=== PATIENT | male | born 1970 | race Caucasian/White ===

== ENCOUNTER 2017-05-29 14:39 | Inpatient (IN) | payer MEDICAID ==
[~2017-05-29] VITALS: Ht 154.9 cm; Wt 56.7 kg
[~2017-05-29 14:39] MED LIST: ETOMIDATE 2MG/ML 10ML VIAL IV ONE; SUCCINYLCHOLINE CHLORIDE 200MG/10ML VIAL IV ONE
[2017-05-29] MEDS ORDERED: ACETAMINOPHEN 650MG/20.3ML UDC ONE (15:09)
[2017-05-29] MEDS ORDERED: SODIUM CHLORIDE 0.9% 1,000 ML IV ONE (16:06)
[2017-05-29] MEDS ORDERED: LEVOFLOXACIN 750MG PREMIX 150 ML IV ONE (16:15)
[2017-05-29] MEDS ORDERED: IBUPROFEN 400MG TABLET PO ONE (16:15)
[2017-05-29] MEDS ORDERED: FOLIC ACID 1 MG, THIAMINE HCL 100 MG, MVI, ADULT NO.1 10 ML in DEXTROSE 5% WATER 1,000 ML IV ONE ×4 (16:15)
[2017-05-29 16:34] LABS: CARBON DIOXIDE 20 mEq/L (21-32); CHLORIDE 103 mEq/L (98-107)
[2017-05-29 16:35] LABS: HEMATOCRIT. 23.7 % (42.0-52.0); HEMOGLOBIN. 7.3 g/dL (14.0-18.0); MEAN CORPUSCULAR HEMOGLOBIN 24.3 pg (28.0-32.0); MEAN CORPUSCULAR VOLUME 78.8 fL (80.0-94.0); RED BLOOD CELL COUNT 3.01 mill/uL (4.7-6.1); RED CELL DISTRIBUTION WIDTH 19.1 % (11.6-14.6)
[2017-05-29 16:38] LABS: ETHANOL BLOOD 283 mg/dL; INR 1.5; PARTIAL THROMBOPLASTIN TIME 27.8 sec (23.4-31.0); PROTHROMBIN TIME 15.4 sec (9.4-11.6)
[2017-05-29 17:07] LABS: MEAN PLATELET VOLUME 5.9 fl (7.4-10.4)
[2017-05-29 17:09] LABS: PLATELET 16 x1000/uL (130-400)
[2017-05-29 17:11] LABS: PLATELET ESTIMATE MARKEDLY DECREASED
[2017-05-29] MEDS ORDERED: SODIUM CHLORIDE 0.9% 1000ML BAG (SEPSIS BOLUS) IV ONE (17:15)
[2017-05-29] MEDS ORDERED: PIPERACILLIN/TAZ 3.375G PREMIX 50 ML IV ONE (17:30)
[2017-05-29] MEDS ORDERED: VANCOMYCIN 1 G PREMIX 200 ML IV ONE (17:30)
[2017-05-29] MEDS ORDERED: HYDROCODONE/ACETAMINOPHEN 5/325MG TABLET PO PRN (19:00)
[2017-05-29] MEDS ORDERED: ONDANSETRON HCL 4MG/2ML VIAL IV PRN (19:00)
[2017-05-29] MEDS ORDERED: ENOXAPARIN 40MG/0.4ML SYR SUBCUT SCH (19:00)
[2017-05-29] MEDS ORDERED: SODIUM CHLORIDE 0.9% 1,000 ML IV SCH (21:15)
[2017-05-29 21:30] VITALS: BP 115/64
[2017-05-29 22:00] VITALS: BP 135/67
[2017-05-29] MEDS ORDERED: DEXT 5%/0.45% NACL KCL 40MEQ/L 1,000 ML IV SCH (22:00)
[2017-05-29] MEDS ORDERED: POTASSIUM CHLORIDE INJ 40 MEQ in DEXT 5% WATER 500 ML IV NR (23:30)
[2017-05-30] VITALS (66 sets, daily range): BP systolic 76–164; BP diastolic 42–97
[2017-05-30] MEDS: MORPHINE SULFATE 2 MG/ML CPJ (NOT FOR IM USE) IV PRN (01:00)
[2017-05-30] MEDS: LORAZEPAM 2MG/ML CPJ IV PRN ×2 (02:23→08:06)
[2017-05-30] MEDS: ACETAMINOPHEN 325MG TABLET PO PRN (04:24)
[2017-05-30 08:03] LABS: HEMATOCRIT. 29.2 % (42.0-52.0); HEMOGLOBIN. 8.9 g/dL (14.0-18.0); MEAN CORPUSCULAR HEMOGLOBIN 25.4 pg (28.0-32.0); MEAN CORPUSCULAR VOLUME 83.2 fL (80.0-94.0); MEAN PLATELET VOLUME 9.9 fl (7.4-10.4); RED BLOOD CELL COUNT 3.51 mill/uL (4.7-6.1); RED CELL DISTRIBUTION WIDTH 18.1 % (11.6-14.6)
[2017-05-30 08:12] LABS: CARBON DIOXIDE 19 mEq/L (21-32); CHLORIDE 101 mEq/L (98-107); PHOSPHORUS 5.3 mg/dL (2.5-4.9)
[2017-05-30 08:22] LABS: PLATELET 25 x1000/uL (130-400)
[2017-05-30] MEDS: THIAMINE HCL 100MG TABLET PO SCH (09:00)
[2017-05-30 09:28] LABS: PLATELET ESTIMATE MARKEDLY DECREASED
[2017-05-30] MEDS ORDERED: LORAZEPAM 2MG/ML CPJ IV PRN (10:15)
[2017-05-30] MEDS ORDERED: IPRATROPIUM/ALBUTEROL 0.5-3(2.5)MG/3ML NEB HHN PRN (12:30)
[2017-05-30] MEDS ORDERED: PHENYLEPHRINE 20 MG in DEXT 5% WATER 248 ML IV PRN (12:30)
[2017-05-30] MEDS ORDERED: MAGNESIUM 2 G PREMIX 50 ML IV SCH ×2 (12:30→15:30)
[2017-05-30] MEDS: PROPOFOL 10MG/ML 100ML 100 ML IV PRN ×2 (13:28→17:53)
[2017-05-30 13:51] LABS: BG BASE EXCESS -5.3 mmol/L (-2.0-2.0); BG CARBOXYHEMOGLOBIN 0.3 % (0.5-1.5); BG HCO3 ACT 19.2 mmol/L (22.0-26.0); BG METHEMOGLOBIN 0.4 % (0.0-1.5); BG OXYHEMOGLOBIN 98.3 % (94.0-97.0); BG PCO2 33.3 mmHg (35.0-45.0); BG PH 7.378 (7.350-7.450); BG PO2 157.9 mmHg (75.0-100.0); BG SAMPLE SITE RIGHT RADIAL; BG TIDAL VOLUME(mL) 500 mL; BG TOTAL HEMOGLOBIN 9.6 g/dL (12.0-18.0); BG VENT MODE VENT - A/C; BG VENT RATE 14 set
[2017-05-30] MEDS ORDERED: LEVOFLOXACIN 750MG PREMIX 150 ML IV SCH (14:00)
[2017-05-30] MEDS: FOLIC ACID 1 MG, THIAMINE HCL 100 MG, MVI, ADULT NO.1 10 ML in DEXT 5%/0.9% NACL 1,000 ML IV SCH ×4 (14:12)
[2017-05-30] MEDS: LEVETIRACETAM 500 MG in SODIUM CHLORIDE 0.9% 100 ML IV SCH (14:14)
[2017-05-30] MEDS ORDERED: VANCOMYCIN 1250MG in DEXTROSE 5% WATER 250ML IV SCH (15:00)
[2017-05-30] MEDS: IPRATROPIUM/ALBUTEROL 0.5-3(2.5)MG/3ML NEB HHN SCH ×2 (15:13→20:49)
[2017-05-30] MEDS: NOREPINEPHRINE 8 MG in DEXT 5% WATER 242 ML IV PRN (15:32)
[2017-05-30] MEDS: PANTOPRAZOLE SODIUM 40 MG/VIAL IV SCH (15:32)
[2017-05-30] MEDS ORDERED: CEFTRIAXONE 2 G PREMIX 50 ML IV SCH (16:00)
[2017-05-30 16:09] LABS: CLARITY URINE CLOUDY (CLEAR); COLOR URINE DARK YELLOW (YELLOW); GLUCOSE URINE NEGATIVE (NEGATIVE); KETONES URINE NEGATIVE (NEGATIVE); LEUKOCYTE ESTERASE URINE NEGATIVE (NEGATIVE); NITRITE URINE NEGATIVE (NEGATIVE); OCCULT BLOOD URINE 2+ (NEGATIVE); PROTEIN URINE 2+ (NEGATIVE); UROBILINOGEN URINE 0.2 E.U./dL (0.2-1.0)
[2017-05-30 16:19] LABS: *AMPHETAMINES SCREEN URINE NEGATIVE (NEGATIVE); *BARBITURATES SCREEN URINE NEGATIVE (NEGATIVE); *BENZODIAZEPINES SCREEN URINE NEGATIVE (NEGATIVE); *COCAINE SCREEN URINE NEGATIVE (NEGATIVE); CANNABINOID URINE SCREEN NEGATIVE (NEGATIVE); METHADONE URINE SCREEN NEGATIVE (NEGATIVE); OPIATES URINE SCREEN PRESUMTIVE POSITIVE (NEGATIVE); PHENCYCLIDINE URINE SCREEN NEGATIVE (NEGATIVE)
[2017-05-30 17:36] LABS: PHOSPHORUS 3.5 mg/dL (2.5-4.9)
[2017-05-30 17:52] LABS: AMMONIA 82 uMol/L (<32)
[2017-05-30 18:22] LABS: HEPATITIS B SURFACE ANTIGEN NEGATIVE
[2017-05-30 18:51] LABS: HEPATITIS B CORE AB IGM NEGATIVE
[2017-05-30 18:52] LABS: HEPATITIS A AB IGM NEGATIVE (NEGATIVE)
[2017-05-30] MEDS: POTASSIUM CHLORIDE INJ 30 MEQ in DEXT 5%/0.9% NACL 1,000 ML IV SCH (21:47)
[2017-05-30] MEDS: VANCOMYCIN 750 MG PREMIX 150 ML IV SCH (23:36)
[2017-05-30] MEDS: LACTULOSE 20G/30ML UDC PO SCH (23:41)
[2017-05-31] VITALS (92 sets, daily range): BP systolic 91–146; BP diastolic 52–123
[2017-05-31] MEDS: IPRATROPIUM/ALBUTEROL 0.5-3(2.5)MG/3ML NEB HHN SCH ×6 (00:25→19:49)
[2017-05-31] MEDS: PROPOFOL 10MG/ML 100ML 100 ML IV PRN ×5 (01:02→20:40)
[2017-05-31] MEDS: LEVETIRACETAM 500 MG in SODIUM CHLORIDE 0.9% 100 ML IV SCH ×2 (02:39→15:10)
[2017-05-31 05:26] LABS: HEMOGLOBIN. 8.5 g/dL (14.0-18.0); MEAN CORPUSCULAR VOLUME 82.5 fL (80.0-94.0); MEAN PLATELET VOLUME 9.7 fl (7.4-10.4); RED BLOOD CELL COUNT 3.27 mill/uL (4.7-6.1); RED CELL DISTRIBUTION WIDTH 18.1 % (11.6-14.6)
[2017-05-31] MEDS: LACTULOSE 20G/30ML UDC PO SCH ×3 (05:43→18:16)
[2017-05-31] MEDS: POTASSIUM CHLORIDE INJ 30 MEQ in DEXT 5%/0.9% NACL 1,000 ML IV SCH ×2 (05:43→14:20)
[2017-05-31 05:45] LABS: CARBON DIOXIDE 22 mEq/L (21-32); CHLORIDE 107 mEq/L (98-107)
[2017-05-31 05:47] LABS: PLATELET 40 x1000/uL (130-400)
[2017-05-31 05:50] LABS: CREATINE KINASE 1365 IU/L (39-308)
[2017-05-31 06:24] LABS: PHOSPHORUS 0.8 mg/dL (2.5-4.9)
[2017-05-31] MEDS: VANCOMYCIN 750 MG PREMIX 150 ML IV SCH ×3 (06:56→22:37)
[2017-05-31 08:07] LABS: BG BASE EXCESS -3.2 mmol/L (-2.0-2.0); BG CARBOXYHEMOGLOBIN 0.2 % (0.5-1.5); BG DEOXYHEMOGLOBIN 0.9 % (0.0-5.0); BG FRACTION INSPIRED OXYGEN 80; BG HCO3 ACT 20.7 mmol/L (22.0-26.0); BG METHEMOGLOBIN 0.5 % (0.0-1.5); BG OXYGEN SATURATION 99.1 % (92.0-98.5); BG OXYHEMOGLOBIN 98.4 % (94.0-97.0); BG PCO2 32.3 mmHg (35.0-45.0); BG PH 7.424 (7.350-7.450); BG PO2 150.2 mmHg (75.0-100.0); BG SAMPLE SITE RIGHT RADIAL; BG TIDAL VOLUME(mL) 500 mL; BG TOTAL HEMOGLOBIN 9.3 g/dL (12.0-18.0); BG VENT MODE VENT - A/C; BG VENT RATE 14 set
[2017-05-31] MEDS: PANTOPRAZOLE SODIUM 40 MG/VIAL IV SCH (09:50)
[2017-05-31] MEDS: THIAMINE HCL 100MG TABLET PO SCH (09:52)
[2017-05-31] MEDS ORDERED: POTASSIUM PHOS,M-BASIC-D-BASIC 30 MMOL in DEXT 5% WATER 500 ML IV SCH (11:00)
[2017-05-31] MEDS ORDERED: MAGNESIUM 2 G PREMIX 50 ML IV SCH (11:00)
[2017-05-31] MEDS: NOREPINEPHRINE 8 MG in DEXT 5% WATER 242 ML IV PRN (11:34)
[2017-05-31] MEDS: MORPHINE SULFATE 2 MG/ML CPJ (NOT FOR IM USE) IV PRN (12:26)
[2017-05-31] MEDS: CEFTRIAXONE 2 G in DEXTROSE 5% WATER 50 ML IV SCH (17:53)
[2017-05-31 22:38] LABS: PLATELET ESTIMATE MARKEDLY DECREASED
[2017-05-31 23:16] LABS: CARBON DIOXIDE 22 mEq/L (21-32); CHLORIDE 108 mEq/L (98-107)
[2017-06-01] VITALS (79 sets, daily range): BP systolic 81–147; BP diastolic 50–107
[2017-06-01] MEDS: LACTULOSE 20G/30ML UDC PO SCH ×5 (00:09→23:00)
[2017-06-01] MEDS: IPRATROPIUM/ALBUTEROL 0.5-3(2.5)MG/3ML NEB HHN SCH ×6 (00:11→20:46)
[2017-06-01] MEDS: POTASSIUM CHLORIDE INJ 30 MEQ in DEXT 5%/0.9% NACL 1,000 ML IV SCH ×4 (00:54→22:21)
[2017-06-01] MEDS: LEVETIRACETAM 500 MG in SODIUM CHLORIDE 0.9% 100 ML IV SCH ×2 (03:08→15:41)
[2017-06-01 06:30] LABS: HEMATOCRIT. 27.1 % (42.0-52.0); HEMOGLOBIN. 8.7 g/dL (14.0-18.0); MEAN CORPUSCULAR HEMOGLOBIN 26.2 pg (28.0-32.0); MEAN CORPUSCULAR VOLUME 81.9 fL (80.0-94.0); MEAN PLATELET VOLUME 9.6 fl (7.4-10.4); RED BLOOD CELL COUNT 3.31 mill/uL (4.7-6.1); RED CELL DISTRIBUTION WIDTH 18.7 % (11.6-14.6)
[2017-06-01] MEDS: PROPOFOL 10MG/ML 100ML 100 ML IV PRN ×4 (06:34→18:52)
[2017-06-01] MEDS: VANCOMYCIN 750 MG PREMIX 150 ML IV SCH ×3 (06:34→22:21)
[2017-06-01 06:45] LABS: PLATELET 35 x1000/uL (130-400)
[2017-06-01 07:43] LABS: CARBON DIOXIDE 23 mEq/L (21-32); CHLORIDE 111 mEq/L (98-107)
[2017-06-01 08:00] LABS: CREATINE KINASE 542 IU/L (39-308); CREATINE KINASE MB FRACTION 2.4 ng/mL (0.5-3.6); PHOSPHORUS 1.2 mg/dL (2.5-4.9); VANCOMYCIN TROUGH 17.8 ug/mL (5.0-10.0)
[2017-06-01 08:05] LABS: TROPONIN I 0.47 ng/mL (0.00-0.04)
[2017-06-01 09:25] LABS: PLATELET ESTIMATE MARKEDLY DECREASED
[2017-06-01] MEDS: THIAMINE HCL 100MG TABLET PO SCH (09:53)
[2017-06-01] MEDS: PANTOPRAZOLE SODIUM 40 MG/VIAL IV SCH (09:53)
[2017-06-01] MEDS ORDERED: CALCIUM GLUCONATE 100MG/ML 10ML VIAL IV ONE (10:00)
[2017-06-01] MEDS: MORPHINE SULFATE 2 MG/ML CPJ (NOT FOR IM USE) IV PRN ×2 (10:28→23:22)
[2017-06-01] MEDS ORDERED: CALCIUM GLUCONATE 1000 MG in DEXTROSE 5% WATER 100 ML IV SCH (11:00)
[2017-06-01] MEDS ORDERED: POTASSIUM PHOS,M-BASIC-D-BASIC 30 MMOL in DEXT 5% WATER 500 ML IV SCH (12:00)
[2017-06-01] MEDS ORDERED: MAGNESIUM 4 G PREMIX 100 ML IV SCH (12:00)
[2017-06-01 14:50] LABS: BG BASE EXCESS -4.7 mmol/L (-2.0-2.0); BG CARBOXYHEMOGLOBIN 0.3 % (0.5-1.5); BG DEOXYHEMOGLOBIN 1.3 % (0.0-5.0); BG FRACTION INSPIRED OXYGEN 60; BG HCO3 ACT 18.7 mmol/L (22.0-26.0); BG METHEMOGLOBIN 0.1 % (0.0-1.5); BG OXYGEN SATURATION 98.7 % (92.0-98.5); BG OXYHEMOGLOBIN 98.3 % (94.0-97.0); BG PCO2 28.5 mmHg (35.0-45.0); BG PH 7.435 (7.350-7.450); BG PO2 143.9 mmHg (75.0-100.0); BG SAMPLE SITE LEFT BRACHIAL; BG TIDAL VOLUME(mL) 600 mL; BG VENT MODE VENT - A/C; BG VENT RATE 14 set
[2017-06-01] MEDS: CEFTRIAXONE 2 G in DEXTROSE 5% WATER 50 ML IV SCH (18:52)
[2017-06-01] MEDS: ACETAMINOPHEN 325MG TABLET PO PRN (22:53)
[2017-06-02] VITALS (46 sets, daily range): BP systolic 83–151; BP diastolic 52–96
[2017-06-02] MEDS: PROPOFOL 10MG/ML 100ML 100 ML IV PRN ×5 (00:09→19:58)
[2017-06-02] MEDS: IPRATROPIUM/ALBUTEROL 0.5-3(2.5)MG/3ML NEB HHN SCH ×6 (00:44→20:50)
[2017-06-02] MEDS: LEVETIRACETAM 500 MG in SODIUM CHLORIDE 0.9% 100 ML IV SCH ×2 (02:44→15:00)
[2017-06-02 05:33] LABS: HEMATOCRIT. 27.8 % (42.0-52.0); HEMOGLOBIN. 9.1 g/dL (14.0-18.0); MEAN CORPUSCULAR HEMOGLOBIN 26.8 pg (28.0-32.0); MEAN CORPUSCULAR VOLUME 81.7 fL (80.0-94.0); MEAN PLATELET VOLUME 8.9 fl (7.4-10.4); RED BLOOD CELL COUNT 3.41 mill/uL (4.7-6.1); RED CELL DISTRIBUTION WIDTH 19.4 % (11.6-14.6)
[2017-06-02 05:54] LABS: PLATELET 32 x1000/uL (130-400)
[2017-06-02 06:02] LABS: AMMONIA 32 uMol/L (<32)
[2017-06-02 06:04] LABS: CARBON DIOXIDE 22 mEq/L (21-32); CHLORIDE 113 mEq/L (98-107); CREATINE KINASE 292 IU/L (39-308); PHOSPHORUS 2.2 mg/dL (2.5-4.9); TROPONIN I 0.16 ng/mL (0.00-0.04)
[2017-06-02] MEDS: LACTULOSE 20G/30ML UDC PO SCH ×4 (06:10→23:58)
[2017-06-02] MEDS: VANCOMYCIN 750 MG PREMIX 150 ML IV SCH ×3 (06:12→22:46)
[2017-06-02] MEDS: POTASSIUM CHLORIDE INJ 30 MEQ in DEXT 5%/0.9% NACL 1,000 ML IV SCH ×3 (06:12→22:47)
[2017-06-02] MEDS: PANTOPRAZOLE SODIUM 40 MG/VIAL IV SCH (08:03)
[2017-06-02] MEDS: THIAMINE HCL 100MG TABLET PO SCH (08:03)
[2017-06-02 08:35] LABS: PLATELET ESTIMATE DECREASED
[2017-06-02] MEDS: FOLIC ACID 1 MG, THIAMINE HCL 100 MG, MVI, ADULT NO.1 10 ML in DEXT 5%/0.9% NACL 1,000 ML IV SCH ×4 (09:22)
[2017-06-02] MEDS ORDERED: CALCIUM GLUCONATE 100MG/ML 10ML VIAL IV ONE (10:00)
[2017-06-02] MEDS ORDERED: POTASSIUM PHOS,M-BASIC-D-BASIC 20 MMOL in DEXT 5% WATER 250 ML IV SCH (11:00)
[2017-06-02] MEDS ORDERED: MAGNESIUM 4 G PREMIX 100 ML IV SCH (11:00)
[2017-06-02] MEDS ORDERED: MAGNESIUM 2 G PREMIX 50 ML IV SCH (11:00)
[2017-06-02] MEDS ORDERED: POTASSIUM PHOS,M-BASIC-D-BASIC 15 MMOL in DEXT 5% WATER 245 ML IV SCH (11:00)
[2017-06-02] MEDS ORDERED: CALCIUM GLUCONATE 2,000 MG in DEXT 5% WATER 100 ML IV SCH (12:00)
[2017-06-02] MEDS: POLYVINYL ALCOHOL OPHTH DROPS 15ML BOTHEYE SCH ×4 (12:40→23:58)
[2017-06-02] MEDS: CEFTRIAXONE 2 G in DEXTROSE 5% WATER 50 ML IV SCH (15:01)
[2017-06-03] VITALS (46 sets, daily range): BP systolic 89–158; BP diastolic 54–107
[2017-06-03] MEDS: IPRATROPIUM/ALBUTEROL 0.5-3(2.5)MG/3ML NEB HHN SCH ×6 (00:50→20:08)
[2017-06-03] MEDS: PROPOFOL 10MG/ML 100ML 100 ML IV PRN ×2 (02:03→05:32)
[2017-06-03] MEDS: LEVETIRACETAM 500 MG in SODIUM CHLORIDE 0.9% 100 ML IV SCH ×2 (02:45→14:55)
[2017-06-03] MEDS: POLYVINYL ALCOHOL OPHTH DROPS 15ML BOTHEYE SCH ×6 (04:04→23:24)
[2017-06-03] MEDS: LACTULOSE 20G/30ML UDC PO SCH ×4 (05:11→23:24)
[2017-06-03] MEDS: POTASSIUM CHLORIDE INJ 30 MEQ in DEXT 5%/0.9% NACL 1,000 ML IV SCH ×3 (05:32→23:01)
[2017-06-03 05:42] LABS: HEMATOCRIT. 27.6 % (42.0-52.0); HEMOGLOBIN. 8.8 g/dL (14.0-18.0); MEAN CORPUSCULAR HEMOGLOBIN 26.1 pg (28.0-32.0); MEAN CORPUSCULAR VOLUME 82.6 fL (80.0-94.0); MEAN PLATELET VOLUME 9.6 fl (7.4-10.4); RED BLOOD CELL COUNT 3.35 mill/uL (4.7-6.1); RED CELL DISTRIBUTION WIDTH 19.7 % (11.6-14.6)
[2017-06-03 05:52] LABS: PLATELET 42 x1000/uL (130-400)
[2017-06-03 06:03] LABS: CARBON DIOXIDE 20 mEq/L (21-32); CHLORIDE 113 mEq/L (98-107)
[2017-06-03] MEDS: VANCOMYCIN 750 MG PREMIX 150 ML IV SCH ×3 (06:07→22:08)
[2017-06-03 08:37] LABS: PLATELET ESTIMATE DECREASED
[2017-06-03 08:46] LABS: PHOSPHORUS 2.6 mg/dL (2.5-4.9)
[2017-06-03] MEDS: PANTOPRAZOLE SODIUM 40 MG/VIAL IV SCH (09:25)
[2017-06-03] MEDS: THIAMINE HCL 100MG TABLET PO SCH (09:25)
[2017-06-03] MEDS ORDERED: MAGNESIUM 2 G PREMIX 50 ML IV SCH (10:00)
[2017-06-03 10:54] LABS: BG BASE EXCESS -4.3 mmol/L (-2.0-2.0); BG CARBOXYHEMOGLOBIN 0.6 % (0.5-1.5); BG DEOXYHEMOGLOBIN 2.1 % (0.0-5.0); BG FRACTION INSPIRED OXYGEN 40; BG HCO3 ACT 18.8 mmol/L (22.0-26.0); BG OXYGEN SATURATION 97.9 % (92.0-98.5); BG OXYHEMOGLOBIN 97.3 % (94.0-97.0); BG PCO2 27.8 mmHg (35.0-45.0); BG PH 7.448 (7.350-7.450); BG SAMPLE SITE RIGHT RADIAL; BG TIDAL VOLUME(mL) 600 mL; BG VENT MODE VENT - A/C; BG VENT RATE 14 set
[2017-06-03] MEDS: MAGNESIUM OXIDE 400MG TABLET PO SCH (11:36)
[2017-06-03] MEDS: MORPHINE SULFATE 2 MG/ML CPJ (NOT FOR IM USE) IV PRN (12:02)
[2017-06-03 12:26] LABS: AMMONIA 31 uMol/L (<32)
[2017-06-03] MEDS: LORAZEPAM 2MG/ML CPJ IV PRN ×3 (13:32→23:24)
[2017-06-03] MEDS: CEFTRIAXONE 2 G in DEXTROSE 5% WATER 50 ML IV SCH (14:55)
[2017-06-03] MEDS: FOLIC ACID 1 MG, THIAMINE HCL 100 MG, MVI, ADULT NO.1 10 ML in DEXT 5%/0.9% NACL 1,000 ML IV SCH ×4 (15:06)
[2017-06-03] MEDS: ACETYLCYSTEINE 100MG/ML 10% VIAL 4ML INH SCH ×2 (15:28→20:08)
[2017-06-03] MEDS: MORPHINE SULFATE 4 MG/ML CPJ (NOT FOR IM USE) IV PRN (20:36)
[2017-06-04] VITALS (46 sets, daily range): BP systolic 97–156; BP diastolic 67–102
[2017-06-04] MEDS: IPRATROPIUM/ALBUTEROL 0.5-3(2.5)MG/3ML NEB HHN SCH ×7 (00:02→23:39)
[2017-06-04] MEDS: ACETYLCYSTEINE 100MG/ML 10% VIAL 4ML INH SCH ×7 (00:02→23:39)
[2017-06-04] MEDS: POLYVINYL ALCOHOL OPHTH DROPS 15ML BOTHEYE SCH ×6 (03:10→23:24)
[2017-06-04] MEDS: MORPHINE SULFATE 4 MG/ML CPJ (NOT FOR IM USE) IV PRN ×2 (04:50→22:17)
[2017-06-04] MEDS: LACTULOSE 20G/30ML UDC PO SCH ×2 (05:07→12:01)
[2017-06-04] MEDS: LEVETIRACETAM 500 MG in SODIUM CHLORIDE 0.9% 100 ML IV SCH ×2 (06:05→14:32)
[2017-06-04 06:09] LABS: HEMOGLOBIN. 9.4 g/dL (14.0-18.0); MEAN CORPUSCULAR HEMOGLOBIN 26.2 pg (28.0-32.0); MEAN CORPUSCULAR VOLUME 83.4 fL (80.0-94.0); PLATELET 66 x1000/uL (130-400); RED CELL DISTRIBUTION WIDTH 20.4 % (11.6-14.6)
[2017-06-04] MEDS: VANCOMYCIN 750 MG PREMIX 150 ML IV SCH ×3 (06:20→23:23)
[2017-06-04] MEDS: POTASSIUM CHLORIDE INJ 30 MEQ in DEXT 5%/0.9% NACL 1,000 ML IV SCH ×2 (06:33→23:24)
[2017-06-04 07:07] LABS: CHLORIDE 111 mEq/L (98-107)
[2017-06-04 07:14] LABS: CARBON DIOXIDE 20 mEq/L (21-32)
[2017-06-04 07:45] LABS: PHOSPHORUS 3.6 mg/dL (2.5-4.9)
[2017-06-04 07:48] LABS: BG BASE EXCESS -3.6 mmol/L (-2.0-2.0); BG CARBOXYHEMOGLOBIN 0.7 % (0.5-1.5); BG DEOXYHEMOGLOBIN 2.8 % (0.0-5.0); BG FRACTION INSPIRED OXYGEN 35; BG HCO3 ACT 20.4 mmol/L (22.0-26.0); BG METHEMOGLOBIN 0.4 % (0.0-1.5); BG OXYGEN SATURATION 97.2 % (92.0-98.5); BG OXYHEMOGLOBIN 96.1 % (94.0-97.0); BG PCO2 32.6 mmHg (35.0-45.0); BG PH 7.414 (7.350-7.450); BG PO2 95.6 mmHg (75.0-100.0); BG SAMPLE SITE RIGHT RADIAL; BG TIDAL VOLUME(mL) 600 mL; BG TOTAL HEMOGLOBIN 9.6 g/dL (12.0-18.0); BG VENT MODE VENT - A/C; BG VENT RATE 14 set
[2017-06-04] MEDS: PANTOPRAZOLE SODIUM 40 MG/VIAL IV SCH (08:34)
[2017-06-04] MEDS: MAGNESIUM OXIDE 400MG TABLET PO SCH (08:34)
[2017-06-04] MEDS: THIAMINE HCL 100MG TABLET PO SCH (08:34)
[2017-06-04] MEDS ORDERED: MAGNESIUM 2 G PREMIX 50 ML IV SCH (10:00)
[2017-06-04] MEDS: MAGNESIUM GLUCONATE 500MG TABLET PO SCH (11:21)
[2017-06-04] MEDS: LORAZEPAM 2MG/ML CPJ IV PRN ×4 (12:01→20:09)
[2017-06-04] MEDS: METOCLOPRAMIDE HCL 10MG/2ML VIAL IV SCH ×3 (12:01→23:27)
[2017-06-04 12:05] LABS: PLATELET ESTIMATE DECREASED
[2017-06-04] MEDS: FOLIC ACID 1 MG, THIAMINE HCL 100 MG, MVI, ADULT NO.1 10 ML in DEXT 5%/0.9% NACL 1,000 ML IV SCH ×4 (15:43)
[2017-06-04] MEDS: ACETAMINOPHEN 325MG TABLET PO PRN (16:42)
[2017-06-04] MEDS: CEFTRIAXONE 2 G in DEXTROSE 5% WATER 50 ML IV SCH (16:43)
[2017-06-05] VITALS (50 sets, daily range): BP systolic 112–170; BP diastolic 71–139
[2017-06-05] MEDS: LORAZEPAM 2MG/ML CPJ IV PRN ×4 (01:20→21:54)
[2017-06-05] MEDS: IPRATROPIUM/ALBUTEROL 0.5-3(2.5)MG/3ML NEB HHN SCH ×5 (03:16→20:37)
[2017-06-05] MEDS: ACETYLCYSTEINE 100MG/ML 10% VIAL 4ML INH SCH ×5 (03:17→20:36)
[2017-06-05] MEDS: POLYVINYL ALCOHOL OPHTH DROPS 15ML BOTHEYE SCH ×5 (03:31→20:51)
[2017-06-05] MEDS: LEVETIRACETAM 500 MG in SODIUM CHLORIDE 0.9% 100 ML IV SCH ×2 (03:31→15:07)
[2017-06-05] MEDS: MORPHINE SULFATE 4 MG/ML CPJ (NOT FOR IM USE) IV PRN ×2 (04:47→11:06)
[2017-06-05] MEDS: ACETAMINOPHEN 325MG TABLET PO PRN (04:48)
[2017-06-05 05:49] LABS: AMMONIA 38 uMol/L (<32)
[2017-06-05 05:51] LABS: HEMATOCRIT. 27.6 % (42.0-52.0); HEMOGLOBIN. 8.8 g/dL (14.0-18.0); MEAN CORPUSCULAR HEMOGLOBIN 26.5 pg (28.0-32.0); MEAN CORPUSCULAR VOLUME 83.1 fL (80.0-94.0); MEAN PLATELET VOLUME 8.1 fl (7.4-10.4); PLATELET 84 x1000/uL (130-400); RED BLOOD CELL COUNT 3.32 mill/uL (4.7-6.1); RED CELL DISTRIBUTION WIDTH 20.5 % (11.6-14.6)
[2017-06-05] MEDS: VANCOMYCIN 750 MG PREMIX 150 ML IV SCH ×3 (06:02→22:23)
[2017-06-05] MEDS: METOCLOPRAMIDE HCL 10MG/2ML VIAL IV SCH ×3 (06:02→18:12)
[2017-06-05 06:31] LABS: CARBON DIOXIDE 22 mEq/L (21-32); CHLORIDE 112 mEq/L (98-107)
[2017-06-05 08:10] LABS: BG BASE EXCESS -3.8 mmol/L (-2.0-2.0); BG CARBOXYHEMOGLOBIN 1.2 % (0.5-1.5); BG DEOXYHEMOGLOBIN 3.2 % (0.0-5.0); BG FRACTION INSPIRED OXYGEN 35; BG HCO3 ACT 19.6 mmol/L (22.0-26.0); BG METHEMOGLOBIN 0.1 % (0.0-1.5); BG OXYGEN SATURATION 96.8 % (92.0-98.5); BG OXYHEMOGLOBIN 95.5 % (94.0-97.0); BG PCO2 30.1 mmHg (35.0-45.0); BG PH 7.432 (7.350-7.450); BG PO2 91.4 mmHg (75.0-100.0); BG SAMPLE SITE RIGHT RADIAL; BG TIDAL VOLUME(mL) 600 mL; BG TOTAL HEMOGLOBIN 10.3 g/dL (12.0-18.0); BG VENT MODE VENT - A/C; BG VENT RATE 14 set
[2017-06-05] MEDS: MAGNESIUM GLUCONATE 500MG TABLET PO SCH (08:20)
[2017-06-05] MEDS: PANTOPRAZOLE SODIUM 40 MG/VIAL IV SCH (08:20)
[2017-06-05] MEDS: THIAMINE HCL 100MG TABLET PO SCH (08:20)
[2017-06-05] MEDS: POTASSIUM CHLORIDE INJ 30 MEQ in DEXT 5%/0.9% NACL 1,000 ML IV SCH (08:20)
[2017-06-05] MEDS: MAGNESIUM OXIDE 400MG TABLET PO SCH (08:20)
[2017-06-05] MEDS ORDERED: MAGNESIUM 2 G PREMIX 50 ML IV NR (09:30)
[2017-06-05] MEDS ORDERED: MAGNESIUM 2 G PREMIX 50 ML IV SCH (12:00)
[2017-06-05 14:13] LABS: PLATELET ESTIMATE SLIGHTLY DECREASED
[2017-06-05 14:24] LABS: CLARITY URINE CLOUDY (CLEAR); COLOR URINE DARK YELLOW (YELLOW); GLUCOSE URINE NEGATIVE (NEGATIVE); KETONES URINE NEGATIVE (NEGATIVE); LEUKOCYTE ESTERASE URINE NEGATIVE (NEGATIVE); NITRITE URINE NEGATIVE (NEGATIVE); OCCULT BLOOD URINE 3+ (NEGATIVE); PH URINE 5.5 (4.5-8.0); PROTEIN URINE NEGATIVE (NEGATIVE); SPECIFIC GRAVITY URINE 1.022 (1.005-1.030); UROBILINOGEN URINE 0.2 E.U./dL (0.2-1.0)
[2017-06-05] MEDS ORDERED: FUROSEMIDE 40MG/4ML VIAL IVP NR (17:30)
[2017-06-05] MEDS: FOLIC ACID 1 MG, THIAMINE HCL 100 MG, MVI, ADULT NO.1 10 ML in DEXT 5%/0.9% NACL 1,000 ML IV SCH ×4 (17:35)
[2017-06-06] VITALS (47 sets, daily range): BP systolic 114–158; BP diastolic 63–101
[2017-06-06] MEDS: POLYVINYL ALCOHOL OPHTH DROPS 15ML BOTHEYE SCH ×7 (00:23→23:46)
[2017-06-06] MEDS: LORAZEPAM 2MG/ML CPJ IV PRN (00:38)
[2017-06-06] MEDS: IPRATROPIUM/ALBUTEROL 0.5-3(2.5)MG/3ML NEB HHN SCH ×6 (00:39→20:05)
[2017-06-06] MEDS: ACETYLCYSTEINE 100MG/ML 10% VIAL 4ML INH SCH ×4 (00:39→14:16)
[2017-06-06] MEDS: LEVETIRACETAM 500 MG in SODIUM CHLORIDE 0.9% 100 ML IV SCH ×2 (03:22→15:08)
[2017-06-06] MEDS: METOCLOPRAMIDE HCL 10MG/2ML VIAL IV SCH ×4 (05:22→17:31)
[2017-06-06 06:05] LABS: BASOPHILS % 0.9 % (0.0-2.0); EOSINOPHILS % 1.3 % (0.0-5.0); HEMATOCRIT. 28.2 % (42.0-52.0); HEMOGLOBIN. 8.9 g/dL (14.0-18.0); LYMPHOCYTES % 7.1 % (20.0-50.0); MEAN CORPUSCULAR HEMOGLOBIN 26.1 pg (28.0-32.0); MEAN CORPUSCULAR VOLUME 82.8 fL (80.0-94.0); MEAN PLATELET VOLUME 8.8 fl (7.4-10.4); MONOCYTES % 12.9 % (2.0-8.0); NEUTROPHILS % 77.8 % (40.0-76.0); PLATELET 125 x1000/uL (130-400); RED CELL DISTRIBUTION WIDTH 20.9 % (11.6-14.6)
[2017-06-06] MEDS: VANCOMYCIN 750 MG PREMIX 150 ML IV SCH ×3 (06:17→23:46)
[2017-06-06 07:15] LABS: CHLORIDE 106 mEq/L (98-107)
[2017-06-06 07:23] LABS: CARBON DIOXIDE 22 mEq/L (21-32)
[2017-06-06] MEDS: MAGNESIUM GLUCONATE 500MG TABLET PO SCH ×2 (08:07→17:31)
[2017-06-06] MEDS: THIAMINE HCL 100MG TABLET PO SCH (08:07)
[2017-06-06] MEDS: PANTOPRAZOLE SODIUM 40 MG/VIAL IV SCH (08:07)
[2017-06-06 08:29] LABS: BG BASE EXCESS -5.1 mmol/L (-2.0-2.0); BG CARBOXYHEMOGLOBIN 0.8 % (0.5-1.5); BG DEOXYHEMOGLOBIN 2.8 % (0.0-5.0); BG FRACTION INSPIRED OXYGEN 35; BG HCO3 ACT 16.1 mmol/L (22.0-26.0); BG METHEMOGLOBIN 0.1 % (0.0-1.5); BG OXYGEN SATURATION 97.2 % (92.0-98.5); BG OXYHEMOGLOBIN 96.3 % (94.0-97.0); BG PCO2 19.3 mmHg (35.0-45.0); BG PH 7.538 (7.350-7.450); BG PO2 90.7 mmHg (75.0-100.0); BG SAMPLE SITE RIGHT RADIAL; BG TIDAL VOLUME(mL) 600 mL; BG TOTAL HEMOGLOBIN 9.3 g/dL (12.0-18.0); BG VENT MODE VENT - A/C; BG VENT RATE 14 set
[2017-06-06] MEDS: MORPHINE SULFATE 4 MG/ML CPJ (NOT FOR IM USE) IV PRN (09:20)
[2017-06-06] MEDS ORDERED: MAGNESIUM 4 G PREMIX 100 ML IV NR (11:00)
[2017-06-06 13:32] LABS: BG BASE EXCESS -1.3 mmol/L (-2.0-2.0); BG CARBOXYHEMOGLOBIN 0.9 % (0.5-1.5); BG DEOXYHEMOGLOBIN 2.1 % (0.0-5.0); BG FRACTION INSPIRED OXYGEN 35; BG HCO3 ACT 20.9 mmol/L (22.0-26.0); BG METHEMOGLOBIN 0.2 % (0.0-1.5); BG OXYGEN SATURATION 97.9 % (92.0-98.5); BG OXYHEMOGLOBIN 96.8 % (94.0-97.0); BG PCO2 26.9 mmHg (35.0-45.0); BG PH 7.509 (7.350-7.450); BG PO2 104.8 mmHg (75.0-100.0); BG PRESSURE SUPPORT 6; BG SAMPLE SITE LEFT RADIAL; BG TOTAL HEMOGLOBIN 9.5 g/dL (12.0-18.0); BG VENT MODE VENT - CPAP
[2017-06-06 14:45] LABS: BG DEOXYHEMOGLOBIN 1.7 % (0.0-5.0); BG FRACTION INSPIRED OXYGEN 50; BG HCO3 ACT 20.7 mmol/L (22.0-26.0); BG OXYGEN SATURATION 98.3 % (92.0-98.5); BG OXYHEMOGLOBIN 97.3 % (94.0-97.0); BG PCO2 36.1 mmHg (35.0-45.0); BG PH 7.376 (7.350-7.450); BG PO2 129.2 mmHg (75.0-100.0); BG SAMPLE SITE RIGHT RADIAL
[2017-06-06] MEDS ORDERED: POTASSIUM CHLORIDE INJ 30 MEQ in DEXT 5%/0.9% NACL 1,000 ML IV NR (18:00)
[2017-06-06] MEDS ORDERED: POTASSIUM CHLORIDE INJ 40 MEQ in DEXT 5% WATER 250 ML IV NR (18:30)
[2017-06-06 20:38] LABS: AMMONIA 36 uMol/L (<32)
[2017-06-07] VITALS (45 sets, daily range): BP systolic 128–198; BP diastolic 43–114
[2017-06-07] MEDS: IPRATROPIUM/ALBUTEROL 0.5-3(2.5)MG/3ML NEB HHN SCH ×6 (00:02→20:10)
[2017-06-07] MEDS: METOCLOPRAMIDE HCL 10MG/2ML VIAL IV SCH ×4 (00:55→17:34)
[2017-06-07] MEDS: LEVETIRACETAM 500 MG in SODIUM CHLORIDE 0.9% 100 ML IV SCH ×2 (02:00→16:00)
[2017-06-07] MEDS: POLYVINYL ALCOHOL OPHTH DROPS 15ML BOTHEYE SCH ×5 (04:00→20:00)
[2017-06-07] MEDS: VANCOMYCIN 750 MG PREMIX 150 ML IV SCH (06:15)
[2017-06-07 07:20] LABS: CARBON DIOXIDE 23 mEq/L (21-32); CHLORIDE 107 mEq/L (98-107); TROPONIN I 0.06 ng/mL (0.00-0.04)
[2017-06-07 07:37] LABS: EOSINOPHILS % 2.4 % (0.0-5.0); HEMATOCRIT. 26.4 % (42.0-52.0); HEMOGLOBIN. 8.4 g/dL (14.0-18.0); LYMPHOCYTES % 7.4 % (20.0-50.0); MEAN CORPUSCULAR HEMOGLOBIN 26.9 pg (28.0-32.0); MEAN CORPUSCULAR VOLUME 84.2 fL (80.0-94.0); MEAN PLATELET VOLUME 8.8 fl (7.4-10.4); MONOCYTES % 13.5 % (2.0-8.0); NEUTROPHILS % 75.7 % (40.0-76.0); PLATELET 156 x1000/uL (130-400); RED BLOOD CELL COUNT 3.13 mill/uL (4.7-6.1); RED CELL DISTRIBUTION WIDTH 21.2 % (11.6-14.6)
[2017-06-07] MEDS: THIAMINE HCL 100MG TABLET PO SCH (08:44)
[2017-06-07] MEDS: MAGNESIUM GLUCONATE 500MG TABLET PO SCH ×2 (08:44→17:34)
[2017-06-07 10:44] LABS: AMMONIA 19 uMol/L (<32)
[2017-06-07] MEDS ORDERED: MAGNESIUM 2 G PREMIX 50 ML IV NR ×2 (11:00→20:00)
[2017-06-07] MEDS: VANCOMYCIN 1250MG in DEXTROSE 5% WATER 250ML IV SCH (17:34)
[2017-06-08] VITALS (55 sets, daily range): BP systolic 113–172; BP diastolic 73–104
[2017-06-08] MEDS: METOCLOPRAMIDE HCL 10MG/2ML VIAL IV SCH ×5 (01:01→23:25)
[2017-06-08] MEDS: IPRATROPIUM/ALBUTEROL 0.5-3(2.5)MG/3ML NEB HHN SCH ×6 (01:12→20:07)
[2017-06-08] MEDS: POLYVINYL ALCOHOL OPHTH DROPS 15ML BOTHEYE SCH ×7 (03:40→23:25)
[2017-06-08] MEDS: LEVETIRACETAM 500 MG in SODIUM CHLORIDE 0.9% 100 ML IV SCH ×2 (03:41→15:03)
[2017-06-08] MEDS: VANCOMYCIN 1250MG in DEXTROSE 5% WATER 250ML IV SCH ×2 (05:20→17:08)
[2017-06-08] MEDS: MAGNESIUM GLUCONATE 500MG TABLET PO SCH ×2 (08:09→17:07)
[2017-06-08] MEDS: THIAMINE HCL 100MG TABLET PO SCH (08:10)
[2017-06-08] MEDS ORDERED: MORPHINE SULFATE 2 MG/ML CPJ (NOT FOR IM USE) IV PRN (10:00)
[2017-06-08 11:57] LABS: MEAN CORPUSCULAR HEMOGLOBIN 26.5 pg (28.0-32.0); MEAN CORPUSCULAR VOLUME 82.9 fL (80.0-94.0); MEAN PLATELET VOLUME 8.2 fl (7.4-10.4); PLATELET 178 x1000/uL (130-400); RED BLOOD CELL COUNT 3.01 mill/uL (4.7-6.1); RED CELL DISTRIBUTION WIDTH 22.4 % (11.6-14.6)
[2017-06-08 12:16] LABS: CARBON DIOXIDE 21 mEq/L (21-32); CHLORIDE 104 mEq/L (98-107)
[2017-06-08 12:33] LABS: PLATELET ESTIMATE NORMAL
[2017-06-08] MEDS: LORAZEPAM 2MG/ML CPJ IV PRN ×2 (13:13→19:25)
[2017-06-08 13:27] LABS: AMMONIA 28 uMol/L (<32)
[2017-06-08] MEDS ORDERED: POTASSIUM CHLORIDE 20MEQ/PACKET PO NR (18:48)
[2017-06-08] MEDS ORDERED: MAGNESIUM 2 G PREMIX 50 ML IV NR (21:00)
[2017-06-09] VITALS (28 sets, daily range): BP systolic 108–156; BP diastolic 63–90
[2017-06-09] MEDS: IPRATROPIUM/ALBUTEROL 0.5-3(2.5)MG/3ML NEB HHN SCH ×6 (00:14→20:17)
[2017-06-09] MEDS: ACETAMINOPHEN 650MG/20.3ML UDC PO PRN ×2 (00:23→19:35)
[2017-06-09] MEDS: LEVETIRACETAM 500 MG in SODIUM CHLORIDE 0.9% 100 ML IV SCH ×2 (03:37→15:10)
[2017-06-09] MEDS: POLYVINYL ALCOHOL OPHTH DROPS 15ML BOTHEYE SCH ×6 (03:38→23:19)
[2017-06-09 04:54] LABS: BASOPHILS % 0.9 % (0.0-2.0); EOSINOPHILS % 3.4 % (0.0-5.0); HEMATOCRIT. 28.6 % (42.0-52.0); HEMOGLOBIN. 9.1 g/dL (14.0-18.0); LYMPHOCYTES % 7.1 % (20.0-50.0); MEAN CORPUSCULAR HEMOGLOBIN 26.9 pg (28.0-32.0); MEAN CORPUSCULAR VOLUME 84.2 fL (80.0-94.0); MEAN PLATELET VOLUME 8.4 fl (7.4-10.4); MONOCYTES % 13.3 % (2.0-8.0); NEUTROPHILS % 75.3 % (40.0-76.0); PLATELET 189 x1000/uL (130-400); RED BLOOD CELL COUNT 3.39 mill/uL (4.7-6.1)
[2017-06-09] MEDS: METOCLOPRAMIDE HCL 10MG/2ML VIAL IV SCH ×4 (05:11→23:19)
[2017-06-09 05:59] LABS: CARBON DIOXIDE 23 mEq/L (21-32); CHLORIDE 104 mEq/L (98-107); VANCOMYCIN TROUGH 14.6 ug/mL (5.0-10.0)
[2017-06-09] MEDS: VANCOMYCIN 1250MG in DEXTROSE 5% WATER 250ML IV SCH ×2 (06:46→17:00)
[2017-06-09] MEDS: MAGNESIUM GLUCONATE 500MG TABLET PO SCH ×2 (08:30→16:55)
[2017-06-09] MEDS: THIAMINE HCL 100MG TABLET PO SCH (08:30)
[2017-06-09] MEDS ORDERED: LACTULOSE 20G/30ML UDC PO PRN (09:00)
[2017-06-09] MEDS: POTASSIUM CHLORIDE 20MEQ/PACKET GT SCH (10:14)
[2017-06-09] MEDS: FOLIC ACID 1MG TABLET PO SCH (10:14)
[2017-06-09] MEDS: LORAZEPAM 2MG/ML CPJ IV PRN ×3 (10:15→22:33)
[2017-06-09] MEDS ORDERED: MAGNESIUM 4 G PREMIX 100 ML IV NR (11:00)
[2017-06-09 11:07] LABS: CLARITY URINE CLOUDY (CLEAR); COLOR URINE DARK YELLOW (YELLOW); GLUCOSE URINE NEGATIVE (NEGATIVE); KETONES URINE NEGATIVE (NEGATIVE); LEUKOCYTE ESTERASE URINE TRACE (NEGATIVE); NITRITE URINE NEGATIVE (NEGATIVE); OCCULT BLOOD URINE 3+ (NEGATIVE); PROTEIN URINE TRACE (NEGATIVE); SPECIFIC GRAVITY URINE 1.022 (1.005-1.030); UROBILINOGEN URINE 0.2 E.U./dL (0.2-1.0)
[2017-06-09] MEDS: SODIUM CHLORIDE 0.9% 1,000 ML IV SCH (18:18)
[2017-06-10] VITALS (24 sets, daily range): BP systolic 98–173; BP diastolic 15–114
[2017-06-10] MEDS: IPRATROPIUM/ALBUTEROL 0.5-3(2.5)MG/3ML NEB HHN SCH ×7 (00:18→16:12)
[2017-06-10] MEDS: MORPHINE SULFATE 4 MG/ML CPJ (NOT FOR IM USE) IV PRN (00:53)
[2017-06-10] MEDS: LEVETIRACETAM 500 MG in SODIUM CHLORIDE 0.9% 100 ML IV SCH ×2 (02:44→14:24)
[2017-06-10] MEDS: LEVOFLOXACIN 500MG PREMIX 100 ML IV SCH (02:45)
[2017-06-10] MEDS: METOCLOPRAMIDE HCL 10MG/2ML VIAL IV SCH ×4 (05:03→23:31)
[2017-06-10] MEDS: VANCOMYCIN 1250MG in DEXTROSE 5% WATER 250ML IV SCH ×2 (05:03→17:35)
[2017-06-10] MEDS: POLYVINYL ALCOHOL OPHTH DROPS 15ML BOTHEYE SCH ×6 (05:04→23:31)
[2017-06-10] MEDS: LORAZEPAM 2MG/ML CPJ IV PRN ×2 (05:17→20:09)
[2017-06-10 05:49] LABS: BASOPHILS % 1.3 % (0.0-2.0); EOSINOPHILS % 5.3 % (0.0-5.0); HEMATOCRIT. 26.1 % (42.0-52.0); HEMOGLOBIN. 8.3 g/dL (14.0-18.0); LYMPHOCYTES % 10.2 % (20.0-50.0); MEAN CORPUSCULAR HEMOGLOBIN 27.3 pg (28.0-32.0); MEAN CORPUSCULAR VOLUME 85.7 fL (80.0-94.0); MONOCYTES % 13.4 % (2.0-8.0); NEUTROPHILS % 69.8 % (40.0-76.0); PLATELET 189 x1000/uL (130-400); RED BLOOD CELL COUNT 3.04 mill/uL (4.7-6.1); RED CELL DISTRIBUTION WIDTH 22.9 % (11.6-14.6)
[2017-06-10 06:57] LABS: CARBON DIOXIDE 24 mEq/L (21-32); CHLORIDE 104 mEq/L (98-107)
[2017-06-10] MEDS: SODIUM CHLORIDE 0.9% 1,000 ML IV SCH ×2 (06:59→20:28)
[2017-06-10] MEDS: POTASSIUM CHLORIDE 20MEQ/PACKET GT SCH (09:07)
[2017-06-10] MEDS: FOLIC ACID 1MG TABLET PO SCH (09:07)
[2017-06-10] MEDS: MAGNESIUM GLUCONATE 500MG TABLET PO SCH ×2 (09:07→17:35)
[2017-06-10] MEDS: THIAMINE HCL 100MG TABLET PO SCH (09:07)
[2017-06-10] MEDS ORDERED: POTASSIUM CHLORIDE 20MEQ TABLET SR PO NR (10:15)
[2017-06-10] MEDS ORDERED: QUETIAPINE FUMARATE 25MG TABLET PO SCH (11:45)
[2017-06-10] MEDS: QUETIAPINE FUMARATE 25MG TABLET PO SCH ×3 (11:50→23:31)
[2017-06-10] MEDS: CLONIDINE 0.1MG TABLET PO PRN (13:12)
[2017-06-10] MEDS: ACETAMINOPHEN 650MG/20.3ML UDC PO PRN ×2 (13:13→17:36)
[2017-06-10] MEDS ORDERED: MAGNESIUM 4 G PREMIX 100 ML IV NR (14:00)
[2017-06-11] VITALS (22 sets, daily range): BP systolic 117–161; BP diastolic 72–97
[2017-06-11] MEDS: IPRATROPIUM/ALBUTEROL 0.5-3(2.5)MG/3ML NEB HHN SCH ×6 (02:15→20:56)
[2017-06-11] MEDS: POLYVINYL ALCOHOL OPHTH DROPS 15ML BOTHEYE SCH ×5 (03:10→21:01)
[2017-06-11] MEDS: LEVOFLOXACIN 500MG PREMIX 100 ML IV SCH (03:10)
[2017-06-11] MEDS: LEVETIRACETAM 500 MG in SODIUM CHLORIDE 0.9% 100 ML IV SCH ×2 (03:10→15:50)
[2017-06-11] MEDS: LORAZEPAM 2MG/ML CPJ IV PRN (03:38)
[2017-06-11] MEDS: VANCOMYCIN 1250MG in DEXTROSE 5% WATER 250ML IV SCH ×2 (05:52→17:17)
[2017-06-11] MEDS: METOCLOPRAMIDE HCL 10MG/2ML VIAL IV SCH ×3 (05:52→17:17)
[2017-06-11 06:54] LABS: CARBON DIOXIDE 22 mEq/L (21-32); CHLORIDE 106 mEq/L (98-107)
[2017-06-11 07:53] LABS: BASOPHILS % 1.2 % (0.0-2.0); EOSINOPHILS % 5.5 % (0.0-5.0); HEMATOCRIT. 25.3 % (42.0-52.0); HEMOGLOBIN. 8.2 g/dL (14.0-18.0); MEAN CORPUSCULAR VOLUME 86.9 fL (80.0-94.0); MEAN PLATELET VOLUME 8.4 fl (7.4-10.4); MONOCYTES % 13.1 % (2.0-8.0); NEUTROPHILS % 72.2 % (40.0-76.0); PLATELET 217 x1000/uL (130-400); RED BLOOD CELL COUNT 2.91 mill/uL (4.7-6.1); RED CELL DISTRIBUTION WIDTH 23.5 % (11.6-14.6)
[2017-06-11] MEDS: POTASSIUM CHLORIDE 20MEQ/PACKET GT SCH (08:25)
[2017-06-11] MEDS: THIAMINE HCL 100MG TABLET PO SCH (08:26)
[2017-06-11] MEDS: MAGNESIUM GLUCONATE 500MG TABLET PO SCH ×2 (08:26→17:17)
[2017-06-11] MEDS: FOLIC ACID 1MG TABLET PO SCH (08:26)
[2017-06-11] MEDS: QUETIAPINE FUMARATE 25MG TABLET PO SCH (11:37)
[2017-06-11] MEDS ORDERED: KCL 20MEQ/100ML PREMIX 100 ML IV NR (12:30)
[2017-06-11] MEDS: SODIUM CHLORIDE 0.9% 1,000 ML IV SCH (15:56)
[2017-06-11] MEDS: ACETAMINOPHEN 650MG/20.3ML UDC PO PRN (22:44)
[2017-06-12] VITALS (13 sets, daily range): BP systolic 104–161; BP diastolic 67–113
[2017-06-12] MEDS: METOCLOPRAMIDE HCL 10MG/2ML VIAL IV SCH ×5 (00:34→23:04)
[2017-06-12] MEDS: QUETIAPINE FUMARATE 25MG TABLET PO SCH ×3 (00:37→23:04)
[2017-06-12] MEDS: POLYVINYL ALCOHOL OPHTH DROPS 15ML BOTHEYE SCH ×6 (00:38→21:43)
[2017-06-12] MEDS: IPRATROPIUM/ALBUTEROL 0.5-3(2.5)MG/3ML NEB HHN SCH ×6 (00:58→20:59)
[2017-06-12] MEDS: MORPHINE SULFATE 4 MG/ML CPJ (NOT FOR IM USE) IV PRN (02:43)
[2017-06-12] MEDS: LEVETIRACETAM 500 MG in SODIUM CHLORIDE 0.9% 100 ML IV SCH ×2 (02:43→14:20)
[2017-06-12] MEDS: LEVOFLOXACIN 500MG PREMIX 100 ML IV SCH (03:38)
[2017-06-12] MEDS: VANCOMYCIN 1250MG in DEXTROSE 5% WATER 250ML IV SCH ×2 (05:02→17:09)
[2017-06-12 07:33] LABS: CARBON DIOXIDE 23 mEq/L (21-32); CHLORIDE 104 mEq/L (98-107)
[2017-06-12 07:46] LABS: BASOPHILS % 2.3 % (0.0-2.0); EOSINOPHILS % 5.9 % (0.0-5.0); HEMATOCRIT. 24.3 % (42.0-52.0); HEMOGLOBIN. 7.9 g/dL (14.0-18.0); LYMPHOCYTES % 10.4 % (20.0-50.0); MEAN CORPUSCULAR HEMOGLOBIN 28.2 pg (28.0-32.0); MEAN CORPUSCULAR VOLUME 86.5 fL (80.0-94.0); MONOCYTES % 13.9 % (2.0-8.0); NEUTROPHILS % 67.5 % (40.0-76.0); PLATELET 252 x1000/uL (130-400); RED BLOOD CELL COUNT 2.81 mill/uL (4.7-6.1); RED CELL DISTRIBUTION WIDTH 25.7 % (11.6-14.6)
[2017-06-12] MEDS: POTASSIUM CHLORIDE 20MEQ/PACKET GT SCH (08:27)
[2017-06-12] MEDS: MAGNESIUM GLUCONATE 500MG TABLET PO SCH ×3 (08:27→16:15)
[2017-06-12] MEDS: THIAMINE HCL 100MG TABLET PO SCH (08:27)
[2017-06-12] MEDS: FOLIC ACID 1MG TABLET PO SCH (08:27)
[2017-06-12] MEDS: LORAZEPAM 2MG/ML CPJ IV PRN ×2 (09:17→16:15)
[2017-06-12] MEDS ORDERED: KCL 20MEQ/100ML PREMIX 100 ML IV NR (11:30)
[2017-06-12] MEDS: SODIUM CHLORIDE 0.9% 1,000 ML IV SCH (12:24)
[2017-06-13] VITALS (13 sets, daily range): BP systolic 115–155; BP diastolic 70–87
[2017-06-13] MEDS: POLYVINYL ALCOHOL OPHTH DROPS 15ML BOTHEYE SCH ×6 (01:05→20:27)
[2017-06-13] MEDS: IPRATROPIUM/ALBUTEROL 0.5-3(2.5)MG/3ML NEB HHN SCH ×6 (01:09→21:05)
[2017-06-13] MEDS: LEVETIRACETAM 500 MG in SODIUM CHLORIDE 0.9% 100 ML IV SCH ×2 (03:53→15:09)
[2017-06-13] MEDS: METOCLOPRAMIDE HCL 10MG/2ML VIAL IV SCH ×3 (05:04→16:25)
[2017-06-13 07:01] LABS: BASOPHILS % 2.2 % (0.0-2.0); EOSINOPHILS % 8.7 % (0.0-5.0); HEMATOCRIT. 27.1 % (42.0-52.0); HEMOGLOBIN. 8.8 g/dL (14.0-18.0); LYMPHOCYTES % 10.4 % (20.0-50.0); MEAN CORPUSCULAR HEMOGLOBIN 28.5 pg (28.0-32.0); MEAN CORPUSCULAR VOLUME 88.3 fL (80.0-94.0); MEAN PLATELET VOLUME 7.9 fl (7.4-10.4); NEUTROPHILS % 65.7 % (40.0-76.0); PLATELET 239 x1000/uL (130-400); RED BLOOD CELL COUNT 3.07 mill/uL (4.7-6.1); RED CELL DISTRIBUTION WIDTH 27.3 % (11.6-14.6)
[2017-06-13 07:32] LABS: CARBON DIOXIDE 23 mEq/L (21-32); CHLORIDE 105 mEq/L (98-107)
[2017-06-13] MEDS: THIAMINE HCL 100MG TABLET PO SCH (08:43)
[2017-06-13] MEDS: FOLIC ACID 1MG TABLET PO SCH (08:43)
[2017-06-13] MEDS: POTASSIUM CHLORIDE 20MEQ/PACKET GT SCH (08:43)
[2017-06-13] MEDS: MAGNESIUM GLUCONATE 500MG TABLET PO SCH ×3 (09:42→16:25)
[2017-06-13] MEDS: QUETIAPINE FUMARATE 25MG TABLET PO SCH (12:11)
[2017-06-13] MEDS: LORAZEPAM 2MG/ML CPJ IV PRN (15:34)
[2017-06-14] VITALS (11 sets, daily range): BP systolic 117–153; BP diastolic 69–95
[2017-06-14] MEDS: POLYVINYL ALCOHOL OPHTH DROPS 15ML BOTHEYE SCH ×6 (00:43→21:58)
[2017-06-14] MEDS: QUETIAPINE FUMARATE 25MG TABLET PO SCH ×2 (00:44→11:43)
[2017-06-14] MEDS: METOCLOPRAMIDE HCL 10MG/2ML VIAL IV SCH ×5 (00:44→23:14)
[2017-06-14] MEDS: IPRATROPIUM/ALBUTEROL 0.5-3(2.5)MG/3ML NEB HHN SCH ×6 (01:10→21:17)
[2017-06-14] MEDS: LEVETIRACETAM 500 MG in SODIUM CHLORIDE 0.9% 100 ML IV SCH ×2 (03:20→15:39)
[2017-06-14] MEDS: POTASSIUM CHLORIDE 20MEQ/PACKET GT SCH (08:00)
[2017-06-14] MEDS: MAGNESIUM GLUCONATE 500MG TABLET PO SCH ×3 (08:01→16:18)
[2017-06-14] MEDS: THIAMINE HCL 100MG TABLET PO SCH (08:01)
[2017-06-14] MEDS: FOLIC ACID 1MG TABLET PO SCH (08:04)
[2017-06-14] MEDS: LORAZEPAM 2MG/ML CPJ IV PRN ×2 (11:43→20:45)
[2017-06-15] VITALS: BP 152/76
[2017-06-15] MEDS: POLYVINYL ALCOHOL OPHTH DROPS 15ML BOTHEYE SCH ×6 (00:41→20:23)
[2017-06-15] MEDS: QUETIAPINE FUMARATE 25MG TABLET PO SCH ×2 (00:41→12:12)
[2017-06-15] MEDS: IPRATROPIUM/ALBUTEROL 0.5-3(2.5)MG/3ML NEB HHN SCH ×6 (01:12→20:58)
[2017-06-15] MEDS: LEVETIRACETAM 500 MG in SODIUM CHLORIDE 0.9% 100 ML IV SCH (03:28)
[2017-06-15 04:00] VITALS: BP 152/78
[2017-06-15] MEDS: METOCLOPRAMIDE HCL 10MG/2ML VIAL IV SCH ×3 (05:25→17:22)
[2017-06-15 07:45] LABS: BASOPHILS % 1.4 % (0.0-2.0); EOSINOPHILS % 9.7 % (0.0-5.0); HEMATOCRIT. 28.7 % (42.0-52.0); HEMOGLOBIN. 9.2 g/dL (14.0-18.0); LYMPHOCYTES % 8.3 % (20.0-50.0); MEAN PLATELET VOLUME 7.9 fl (7.4-10.4); MONOCYTES % 14.9 % (2.0-8.0); NEUTROPHILS % 65.7 % (40.0-76.0); PLATELET 215 x1000/uL (130-400); RED BLOOD CELL COUNT 3.19 mill/uL (4.7-6.1); RED CELL DISTRIBUTION WIDTH 28.1 % (11.6-14.6)
[2017-06-15 08:00] VITALS: BP 153/76
[2017-06-15 08:19] LABS: CARBON DIOXIDE 24 mEq/L (21-32); CHLORIDE 103 mEq/L (98-107)
[2017-06-15] MEDS: FOLIC ACID 1MG TABLET PO SCH (08:32)
[2017-06-15] MEDS: THIAMINE HCL 100MG TABLET PO SCH (08:32)
[2017-06-15] MEDS: POTASSIUM CHLORIDE 20MEQ/PACKET GT SCH (08:32)
[2017-06-15] MEDS: MULTIVITAMINS,THER W-MINERALS TABLET PO SCH (10:29)
[2017-06-15] MEDS: MAGNESIUM GLUCONATE 500MG TABLET PO SCH ×3 (10:45→16:40)
[2017-06-15 12:00] VITALS: BP 137/60
[2017-06-15 16:00] VITALS: BP 174/73
[2017-06-15] MEDS: CLONIDINE 0.1MG TABLET PO PRN (18:06)
[2017-06-15 20:00] VITALS: BP 156/89
[2017-06-15] MEDS: LEVETIRACETAM 500MG/5ML CUP PO SCH (20:23)
[2017-06-15] MEDS: LORAZEPAM 2MG/ML CPJ IV PRN (20:43)
[2017-06-16] VITALS: BP 150/66
[2017-06-16] MEDS: QUETIAPINE FUMARATE 25MG TABLET PO SCH ×2 (00:44→12:29)
[2017-06-16] MEDS: METOCLOPRAMIDE HCL 10MG/2ML VIAL IV SCH ×4 (00:44→17:28)
[2017-06-16] MEDS: POLYVINYL ALCOHOL OPHTH DROPS 15ML BOTHEYE SCH ×6 (00:45→21:10)
[2017-06-16] MEDS: IPRATROPIUM/ALBUTEROL 0.5-3(2.5)MG/3ML NEB HHN SCH ×6 (01:15→21:02)
[2017-06-16 04:00] VITALS: BP 149/87
[2017-06-16 07:52] VITALS: BP 142/78
[2017-06-16 08:32] LABS: BASOPHILS % 1.3 % (0.0-2.0); EOSINOPHILS % 8.4 % (0.0-5.0); HEMATOCRIT. 27.1 % (42.0-52.0); HEMOGLOBIN. 8.7 g/dL (14.0-18.0); LYMPHOCYTES % 9.5 % (20.0-50.0); MEAN CORPUSCULAR HEMOGLOBIN 28.9 pg (28.0-32.0); MEAN CORPUSCULAR VOLUME 89.9 fL (80.0-94.0); MEAN PLATELET VOLUME 7.6 fl (7.4-10.4); MONOCYTES % 13.6 % (2.0-8.0); NEUTROPHILS % 67.2 % (40.0-76.0); PLATELET 217 x1000/uL (130-400); RED BLOOD CELL COUNT 3.02 mill/uL (4.7-6.1); RED CELL DISTRIBUTION WIDTH 27.8 % (11.6-14.6)
[2017-06-16 08:38] LABS: AMMONIA 29 uMol/L (<32)
[2017-06-16] MEDS: FOLIC ACID 1MG TABLET PO SCH (08:41)
[2017-06-16] MEDS: MULTIVITAMINS,THER W-MINERALS TABLET PO SCH (08:42)
[2017-06-16] MEDS: POTASSIUM CHLORIDE 20MEQ/PACKET GT SCH (08:42)
[2017-06-16] MEDS: THIAMINE HCL 100MG TABLET PO SCH (08:42)
[2017-06-16] MEDS: LEVETIRACETAM 500MG/5ML CUP PO SCH ×2 (08:42→21:10)
[2017-06-16] MEDS: MAGNESIUM GLUCONATE 500MG TABLET PO SCH ×3 (08:42→16:15)
[2017-06-16 09:00] LABS: CARBON DIOXIDE 22 mEq/L (21-32); CHLORIDE 101 mEq/L (98-107)
[2017-06-16] MEDS ORDERED: MAGNESIUM 4 G PREMIX 100 ML IV SCH (11:00)
[2017-06-16] MEDS ORDERED: KCL 20MEQ/100ML PREMIX 100 ML IV SCH (11:00)
[2017-06-16 11:20] LABS: CLARITY URINE CLEAR (CLEAR); COLOR URINE DARK YELLOW (YELLOW); GLUCOSE URINE NEGATIVE (NEGATIVE); KETONES URINE NEGATIVE (NEGATIVE); LEUKOCYTE ESTERASE URINE TRACE (NEGATIVE); NITRITE URINE NEGATIVE (NEGATIVE); OCCULT BLOOD URINE 3+ (NEGATIVE); PH URINE 7.5 (4.5-8.0); PROTEIN URINE NEGATIVE (NEGATIVE); SPECIFIC GRAVITY URINE 1.013 (1.005-1.030); UROBILINOGEN URINE 0.2 E.U./dL (0.2-1.0)
[2017-06-16 11:38] VITALS: BP 138/77
[2017-06-16 15:45] VITALS: BP 121/73
[2017-06-16 19:53] VITALS: BP 118/77
[2017-06-17] VITALS: BP 136/77
[2017-06-17] MEDS: POLYVINYL ALCOHOL OPHTH DROPS 15ML BOTHEYE SCH ×6 (00:58→20:50)
[2017-06-17] MEDS: QUETIAPINE FUMARATE 25MG TABLET PO SCH ×2 (01:00→13:05)
[2017-06-17] MEDS: METOCLOPRAMIDE HCL 10MG/2ML VIAL IV SCH ×4 (01:00→17:35)
[2017-06-17] MEDS: IPRATROPIUM/ALBUTEROL 0.5-3(2.5)MG/3ML NEB HHN SCH ×6 (01:36→20:50)
[2017-06-17 04:00] VITALS: BP 145/88
[2017-06-17 07:46] LABS: BASOPHILS % 0.8 % (0.0-2.0); EOSINOPHILS % 8.5 % (0.0-5.0); HEMATOCRIT. 27.5 % (42.0-52.0); LYMPHOCYTES % 7.3 % (20.0-50.0); MEAN CORPUSCULAR HEMOGLOBIN 29.6 pg (28.0-32.0); MEAN CORPUSCULAR VOLUME 90.3 fL (80.0-94.0); MEAN PLATELET VOLUME 7.5 fl (7.4-10.4); MONOCYTES % 13.8 % (2.0-8.0); NEUTROPHILS % 69.6 % (40.0-76.0); PLATELET 171 x1000/uL (130-400); RED BLOOD CELL COUNT 3.04 mill/uL (4.7-6.1); RED CELL DISTRIBUTION WIDTH 28.3 % (11.6-14.6)
[2017-06-17 08:00] VITALS: BP 160/77
[2017-06-17 08:20] LABS: CARBON DIOXIDE 22 mEq/L (21-32); CHLORIDE 102 mEq/L (98-107)
[2017-06-17] MEDS: FOLIC ACID 1MG TABLET PO SCH (08:55)
[2017-06-17] MEDS: MAGNESIUM GLUCONATE 500MG TABLET PO SCH ×3 (08:55→17:35)
[2017-06-17] MEDS: MULTIVITAMINS,THER W-MINERALS TABLET PO SCH (08:55)
[2017-06-17] MEDS: THIAMINE HCL 100MG TABLET PO SCH (08:55)
[2017-06-17] MEDS: POTASSIUM CHLORIDE 20MEQ/PACKET GT SCH (08:56)
[2017-06-17] MEDS: LEVETIRACETAM 500MG/5ML CUP PO SCH ×2 (08:57→20:49)
[2017-06-17 11:29] LABS: PLATELET ESTIMATE NORMAL
[2017-06-17 12:00] VITALS: BP 145/94
[2017-06-17 16:00] VITALS: BP 180/90
[2017-06-17] MEDS: LORAZEPAM 2MG/ML CPJ IV PRN (17:35)
[2017-06-17 20:00] VITALS: BP 146/91
[2017-06-18] VITALS: BP 156/94
[2017-06-18] MEDS: METOCLOPRAMIDE HCL 10MG/2ML VIAL IV SCH ×5 (00:48→23:54)
[2017-06-18] MEDS: QUETIAPINE FUMARATE 25MG TABLET PO SCH ×3 (00:48→23:55)
[2017-06-18] MEDS: POLYVINYL ALCOHOL OPHTH DROPS 15ML BOTHEYE SCH ×6 (00:48→20:56)
[2017-06-18] MEDS: IPRATROPIUM/ALBUTEROL 0.5-3(2.5)MG/3ML NEB HHN SCH ×6 (01:21→20:15)
[2017-06-18 04:00] VITALS: BP 128/85
[2017-06-18 08:00] VITALS: BP 110/67
[2017-06-18] MEDS: LEVETIRACETAM 500MG/5ML CUP PO SCH ×2 (09:38→20:57)
[2017-06-18] MEDS: MAGNESIUM GLUCONATE 500MG TABLET PO SCH ×3 (09:39→17:00)
[2017-06-18] MEDS: MULTIVITAMINS,THER W-MINERALS TABLET PO SCH (09:39)
[2017-06-18] MEDS: THIAMINE HCL 100MG TABLET PO SCH (09:39)
[2017-06-18] MEDS: FOLIC ACID 1MG TABLET PO SCH (09:39)
[2017-06-18 12:00] VITALS: BP 120/68
[2017-06-18 16:00] VITALS: BP 136/69
[2017-06-18 20:00] VITALS: BP 137/87
[2017-06-19] VITALS: BP 139/72
[2017-06-19] MEDS: POLYVINYL ALCOHOL OPHTH DROPS 15ML BOTHEYE SCH ×7 (00:01→23:38)
[2017-06-19] MEDS: IPRATROPIUM/ALBUTEROL 0.5-3(2.5)MG/3ML NEB HHN SCH ×4 (01:38→20:22)
[2017-06-19 04:00] VITALS: BP 150/87
[2017-06-19] MEDS: METOCLOPRAMIDE HCL 10MG/2ML VIAL IV SCH ×4 (05:17→23:38)
[2017-06-19 07:48] VITALS: BP 140/89
[2017-06-19] MEDS: FOLIC ACID 1MG TABLET PO SCH (09:17)
[2017-06-19] MEDS: THIAMINE HCL 100MG TABLET PO SCH (09:17)
[2017-06-19] MEDS: LEVETIRACETAM 500MG/5ML CUP PO SCH ×2 (09:17→20:37)
[2017-06-19] MEDS: MULTIVITAMINS,THER W-MINERALS TABLET PO SCH (09:17)
[2017-06-19] MEDS: MAGNESIUM GLUCONATE 500MG TABLET PO SCH ×3 (09:17→17:18)
[2017-06-19 12:10] VITALS: BP 138/89
[2017-06-19] MEDS: QUETIAPINE FUMARATE 25MG TABLET PO SCH ×2 (12:44→23:38)
[2017-06-19 16:00] VITALS: BP 138/96
[2017-06-19 20:00] VITALS: BP 136/91
[2017-06-19] MEDS ORDERED: MAGNESIUM 2 G PREMIX 50 ML IV NR (20:00)
[2017-06-20] VITALS: BP 142/60
[2017-06-20] MEDS: IPRATROPIUM/ALBUTEROL 0.5-3(2.5)MG/3ML NEB HHN SCH ×4 (00:48→20:46)
[2017-06-20 04:00] VITALS: BP 131/70
[2017-06-20] MEDS: POLYVINYL ALCOHOL OPHTH DROPS 15ML BOTHEYE SCH ×6 (04:10→23:24)
[2017-06-20] MEDS: METOCLOPRAMIDE HCL 10MG/2ML VIAL IV SCH ×4 (05:33→23:24)
[2017-06-20 08:00] VITALS: BP 145/94
[2017-06-20] MEDS: THIAMINE HCL 100MG TABLET PO SCH (09:18)
[2017-06-20] MEDS: MAGNESIUM GLUCONATE 500MG TABLET PO SCH ×3 (09:18→17:27)
[2017-06-20] MEDS: FOLIC ACID 1MG TABLET PO SCH (09:18)
[2017-06-20] MEDS: LEVETIRACETAM 500MG/5ML CUP PO SCH ×2 (09:18→21:38)
[2017-06-20] MEDS: MULTIVITAMINS,THER W-MINERALS TABLET PO SCH (09:20)
[2017-06-20 12:00] VITALS: BP 148/79
[2017-06-20] MEDS: QUETIAPINE FUMARATE 25MG TABLET PO SCH ×2 (12:29→23:24)
[2017-06-20 16:00] VITALS: BP 146/80
[2017-06-20 20:00] VITALS: BP 134/85
[2017-06-21] VITALS: BP 153/93
[2017-06-21] MEDS: IPRATROPIUM/ALBUTEROL 0.5-3(2.5)MG/3ML NEB HHN SCH ×6 (00:33→20:57)
[2017-06-21 04:00] VITALS: BP 149/86
[2017-06-21] MEDS ORDERED: LACTULOSE 20G/30ML UDC PO PRN (04:45)
[2017-06-21] MEDS: POLYVINYL ALCOHOL OPHTH DROPS 15ML BOTHEYE SCH ×5 (05:25→20:21)
[2017-06-21] MEDS: METOCLOPRAMIDE HCL 10MG/2ML VIAL IV SCH ×3 (05:29→17:57)
[2017-06-21 08:00] VITALS: BP 143/93
[2017-06-21] MEDS: FOLIC ACID 1MG TABLET PO SCH (10:31)
[2017-06-21] MEDS: MULTIVITAMINS,THER W-MINERALS TABLET PO SCH (10:31)
[2017-06-21] MEDS: LEVETIRACETAM 500MG/5ML CUP PO SCH ×2 (10:31→20:21)
[2017-06-21] MEDS: THIAMINE HCL 100MG TABLET PO SCH (10:31)
[2017-06-21] MEDS: MAGNESIUM GLUCONATE 500MG TABLET PO SCH ×3 (10:31→17:57)
[2017-06-21 12:00] VITALS: BP 126/79
[2017-06-21] MEDS: QUETIAPINE FUMARATE 25MG TABLET PO SCH (13:47)
[2017-06-21 16:00] VITALS: BP 133/81
[2017-06-21 20:00] VITALS: BP 135/89
[2017-06-22] VITALS: BP 138/86
[2017-06-22] MEDS: QUETIAPINE FUMARATE 25MG TABLET PO SCH ×2 (01:10→12:54)
[2017-06-22] MEDS: POLYVINYL ALCOHOL OPHTH DROPS 15ML BOTHEYE SCH ×6 (01:10→20:30)
[2017-06-22] MEDS: METOCLOPRAMIDE HCL 10MG/2ML VIAL IV SCH ×2 (01:10→06:05)
[2017-06-22] MEDS: IPRATROPIUM/ALBUTEROL 0.5-3(2.5)MG/3ML NEB HHN SCH ×6 (01:20→20:47)
[2017-06-22 04:00] VITALS: BP 114/77
[2017-06-22 07:26] VITALS: BP 121/68
[2017-06-22] MEDS: MAGNESIUM GLUCONATE 500MG TABLET PO SCH ×3 (08:38→16:06)
[2017-06-22] MEDS: LEVETIRACETAM 500MG/5ML CUP PO SCH ×2 (08:38→20:30)
[2017-06-22] MEDS: MULTIVITAMINS,THER W-MINERALS TABLET PO SCH (08:38)
[2017-06-22] MEDS: FOLIC ACID 1MG TABLET PO SCH (08:38)
[2017-06-22] MEDS: THIAMINE HCL 100MG TABLET PO SCH (08:38)
[2017-06-22 10:01] LABS: BASOPHILS % 0.8 % (0.0-2.0); HEMATOCRIT. 27.8 % (42.0-52.0); HEMOGLOBIN. 9.2 g/dL (14.0-18.0); LYMPHOCYTES % 11.4 % (20.0-50.0); MEAN CORPUSCULAR HEMOGLOBIN 30.1 pg (28.0-32.0); MEAN CORPUSCULAR VOLUME 90.4 fL (80.0-94.0); MEAN PLATELET VOLUME 7.4 fl (7.4-10.4); MONOCYTES % 11.8 % (2.0-8.0); PLATELET 135 x1000/uL (130-400); RED BLOOD CELL COUNT 3.07 mill/uL (4.7-6.1); RED CELL DISTRIBUTION WIDTH 26.7 % (11.6-14.6)
[2017-06-22 10:22] LABS: CARBON DIOXIDE 23 mEq/L (21-32); CHLORIDE 102 mEq/L (98-107)
[2017-06-22] MEDS ORDERED: POTASSIUM CHLORIDE 20MEQ TABLET SR PO NR ×2 (10:30→17:00)
[2017-06-22 11:36] VITALS: BP 115/67
[2017-06-22 15:53] VITALS: BP 120/82
[2017-06-22 20:00] VITALS: BP 122/77
[2017-06-23] VITALS: BP 130/82
[2017-06-23] MEDS: POLYVINYL ALCOHOL OPHTH DROPS 15ML BOTHEYE SCH ×7 (00:42→23:52)
[2017-06-23] MEDS: QUETIAPINE FUMARATE 25MG TABLET PO SCH ×3 (00:42→23:52)
[2017-06-23] MEDS: IPRATROPIUM/ALBUTEROL 0.5-3(2.5)MG/3ML NEB HHN SCH ×6 (00:54→20:24)
[2017-06-23 04:00] VITALS: BP 112/69
[2017-06-23 07:49] VITALS: BP 121/74
[2017-06-23] MEDS: THIAMINE HCL 100MG TABLET PO SCH (09:03)
[2017-06-23] MEDS: LEVETIRACETAM 500MG/5ML CUP PO SCH ×2 (09:03→21:34)
[2017-06-23] MEDS: MAGNESIUM GLUCONATE 500MG TABLET PO SCH ×3 (09:03→16:23)
[2017-06-23] MEDS: FOLIC ACID 1MG TABLET PO SCH (09:03)
[2017-06-23] MEDS: MULTIVITAMINS,THER W-MINERALS TABLET PO SCH (09:03)
[2017-06-23 11:45] VITALS: BP 139/78
[2017-06-23] MEDS: ACETAMINOPHEN 650MG/20.3ML UDC PO PRN (12:31)
[2017-06-23 15:51] VITALS: BP 111/66
[2017-06-23 17:36] LABS: BASOPHILS % 0.9 % (0.0-2.0); EOSINOPHILS % 6.8 % (0.0-5.0); HEMATOCRIT. 27.1 % (42.0-52.0); HEMOGLOBIN. 8.9 g/dL (14.0-18.0); LYMPHOCYTES % 10.1 % (20.0-50.0); MEAN CORPUSCULAR HEMOGLOBIN 29.7 pg (28.0-32.0); MEAN PLATELET VOLUME 7.4 fl (7.4-10.4); MONOCYTES % 11.9 % (2.0-8.0); NEUTROPHILS % 70.3 % (40.0-76.0); PLATELET 128 x1000/uL (130-400); RED BLOOD CELL COUNT 3.01 mill/uL (4.7-6.1); RED CELL DISTRIBUTION WIDTH 26.7 % (11.6-14.6)
[2017-06-23 17:50] LABS: CARBON DIOXIDE 22 mEq/L (21-32); CHLORIDE 106 mEq/L (98-107)
[2017-06-23 18:35] LABS: CLARITY URINE CLEAR (CLEAR); COLOR URINE YELLOW (YELLOW); GLUCOSE URINE NEGATIVE (NEGATIVE); KETONES URINE NEGATIVE (NEGATIVE); LEUKOCYTE ESTERASE URINE 1+ (NEGATIVE); NITRITE URINE POSITIVE (NEGATIVE); OCCULT BLOOD URINE 3+ (NEGATIVE); PH URINE 7.5 (4.5-8.0); PROTEIN URINE NEGATIVE (NEGATIVE); SPECIFIC GRAVITY URINE 1.011 (1.005-1.030)
[2017-06-23 20:00] VITALS: BP 149/85
[2017-06-23] MEDS ORDERED: MAGNESIUM 4 G PREMIX 100 ML IV NR (20:00)
[2017-06-24] VITALS: BP 135/75
[2017-06-24] MEDS: IPRATROPIUM/ALBUTEROL 0.5-3(2.5)MG/3ML NEB HHN SCH ×6 (00:15→20:38)
[2017-06-24 04:00] VITALS: BP 144/84
[2017-06-24] MEDS: POLYVINYL ALCOHOL OPHTH DROPS 15ML BOTHEYE SCH ×6 (05:02→23:56)
[2017-06-24 06:34] LABS: BASOPHILS % 0.5 % (0.0-2.0); EOSINOPHILS % 4.6 % (0.0-5.0); HEMATOCRIT. 27.8 % (42.0-52.0); HEMOGLOBIN. 9.2 g/dL (14.0-18.0); LYMPHOCYTES % 9.4 % (20.0-50.0); MEAN CORPUSCULAR HEMOGLOBIN 29.8 pg (28.0-32.0); MEAN CORPUSCULAR VOLUME 90.2 fL (80.0-94.0); MEAN PLATELET VOLUME 7.6 fl (7.4-10.4); MONOCYTES % 11.2 % (2.0-8.0); NEUTROPHILS % 74.3 % (40.0-76.0); PLATELET 129 x1000/uL (130-400); RED BLOOD CELL COUNT 3.08 mill/uL (4.7-6.1); RED CELL DISTRIBUTION WIDTH 26.8 % (11.6-14.6)
[2017-06-24 08:00] VITALS: BP 120/77
[2017-06-24] MEDS: MAGNESIUM GLUCONATE 500MG TABLET PO SCH ×3 (08:10→16:08)
[2017-06-24] MEDS: LEVETIRACETAM 500MG/5ML CUP PO SCH ×2 (08:10→21:28)
[2017-06-24] MEDS: THIAMINE HCL 100MG TABLET PO SCH (08:10)
[2017-06-24] MEDS: FOLIC ACID 1MG TABLET PO SCH (08:10)
[2017-06-24] MEDS: MULTIVITAMINS,THER W-MINERALS TABLET PO SCH (08:10)
[2017-06-24 08:59] LABS: CARBON DIOXIDE 20 mEq/L (21-32); CHLORIDE 102 mEq/L (98-107)
[2017-06-24 12:00] VITALS: BP 130/82
[2017-06-24] MEDS: QUETIAPINE FUMARATE 25MG TABLET PO SCH ×2 (12:58→23:55)
[2017-06-24 16:00] VITALS: BP 130/78
[2017-06-24] MEDS: POTASSIUM CHLORIDE 10MEQ TABLET SR PO SCH (16:07)
[2017-06-24 20:00] VITALS: BP 138/86
[2017-06-25] VITALS (7 sets, daily range): BP systolic 106–143; BP diastolic 66–83
[2017-06-25] MEDS: IPRATROPIUM/ALBUTEROL 0.5-3(2.5)MG/3ML NEB HHN SCH ×6 (01:02→20:00)
[2017-06-25] MEDS: POLYVINYL ALCOHOL OPHTH DROPS 15ML BOTHEYE SCH ×6 (03:50→23:35)
[2017-06-25] MEDS: THIAMINE HCL 100MG TABLET PO SCH (08:45)
[2017-06-25] MEDS: MAGNESIUM GLUCONATE 500MG TABLET PO SCH ×3 (08:45→16:05)
[2017-06-25] MEDS: POTASSIUM CHLORIDE 10MEQ TABLET SR PO SCH (08:45)
[2017-06-25] MEDS: LEVETIRACETAM 500MG/5ML CUP PO SCH ×2 (08:45→20:37)
[2017-06-25] MEDS: FOLIC ACID 1MG TABLET PO SCH (08:45)
[2017-06-25] MEDS: MULTIVITAMINS,THER W-MINERALS TABLET PO SCH (08:45)
[2017-06-25] MEDS: QUETIAPINE FUMARATE 25MG TABLET PO SCH ×2 (12:27→23:41)
[2017-06-26] MEDS: IPRATROPIUM/ALBUTEROL 0.5-3(2.5)MG/3ML NEB HHN SCH ×6 (00:27→20:51)
[2017-06-26] MEDS: POLYVINYL ALCOHOL OPHTH DROPS 15ML BOTHEYE SCH ×4 (03:42→17:48)
[2017-06-26 04:00] VITALS: BP 114/70
[2017-06-26 08:00] VITALS: BP 123/81
[2017-06-26] MEDS: MULTIVITAMINS,THER W-MINERALS TABLET PO SCH (09:16)
[2017-06-26] MEDS: LEVETIRACETAM 500MG/5ML CUP PO SCH ×2 (09:16→21:30)
[2017-06-26] MEDS: MAGNESIUM GLUCONATE 500MG TABLET PO SCH ×3 (09:16→17:48)
[2017-06-26] MEDS: THIAMINE HCL 100MG TABLET PO SCH (09:17)
[2017-06-26] MEDS: FOLIC ACID 1MG TABLET PO SCH (09:17)
[2017-06-26] MEDS: POTASSIUM CHLORIDE 10MEQ TABLET SR PO SCH (09:17)
[2017-06-26] MEDS: QUETIAPINE FUMARATE 25MG TABLET PO SCH ×2 (11:36→23:41)
[2017-06-26 12:00] VITALS: BP 112/64
[2017-06-26 15:52] VITALS: BP 123/74
[2017-06-26 20:00] VITALS: BP 135/77
[2017-06-27] VITALS: BP 125/60
[2017-06-27] MEDS: POLYVINYL ALCOHOL OPHTH DROPS 15ML BOTHEYE SCH ×8 (00:25→23:30)
[2017-06-27] MEDS: IPRATROPIUM/ALBUTEROL 0.5-3(2.5)MG/3ML NEB HHN SCH ×5 (00:32→15:45)
[2017-06-27 04:00] VITALS: BP 123/66
[2017-06-27 08:00] VITALS: BP 116/72
[2017-06-27] MEDS: LEVETIRACETAM 500MG/5ML CUP PO SCH ×2 (09:10→20:19)
[2017-06-27] MEDS: POTASSIUM CHLORIDE 10MEQ TABLET SR PO SCH (09:11)
[2017-06-27] MEDS: MAGNESIUM GLUCONATE 500MG TABLET PO SCH ×3 (09:11→16:45)
[2017-06-27] MEDS: FOLIC ACID 1MG TABLET PO SCH (09:11)
[2017-06-27] MEDS: MULTIVITAMINS,THER W-MINERALS TABLET PO SCH (09:11)
[2017-06-27 12:00] VITALS: BP 122/74
[2017-06-27] MEDS: QUETIAPINE FUMARATE 25MG TABLET PO SCH ×2 (12:40→23:30)
[2017-06-27 16:00] VITALS: BP 121/77
[2017-06-27 20:00] VITALS: BP 122/74
[2017-06-28] VITALS: BP 120/71
[2017-06-28 04:00] VITALS: BP 111/65
[2017-06-28] MEDS: POLYVINYL ALCOHOL OPHTH DROPS 15ML BOTHEYE SCH ×3 (06:40→23:50)
[2017-06-28 08:00] VITALS: BP 127/76
[2017-06-28 12:00] VITALS: BP 123/75
[2017-06-28 13:18] LABS: HEMATOCRIT. 27.5 % (42.0-52.0); HEMOGLOBIN. 9.2 g/dL (14.0-18.0); MEAN CORPUSCULAR HEMOGLOBIN 29.9 pg (28.0-32.0); MEAN CORPUSCULAR VOLUME 89.9 fL (80.0-94.0); MEAN PLATELET VOLUME 7.4 fl (7.4-10.4); PLATELET 139 x1000/uL (130-400); RED BLOOD CELL COUNT 3.06 mill/uL (4.7-6.1); RED CELL DISTRIBUTION WIDTH 25.1 % (11.6-14.6)
[2017-06-28 13:41] LABS: CARBON DIOXIDE 25 mEq/L (21-32); CHLORIDE 101 mEq/L (98-107)
[2017-06-28] MEDS: MAGNESIUM GLUCONATE 500MG TABLET PO SCH (15:50)
[2017-06-28] MEDS: LEVETIRACETAM 500MG/5ML CUP PO SCH ×2 (15:50→20:31)
[2017-06-28] MEDS: QUETIAPINE FUMARATE 25MG TABLET PO SCH ×2 (15:50→23:50)
[2017-06-28] MEDS: FOLIC ACID 1MG TABLET PO SCH (15:51)
[2017-06-28 17:45] LABS: PLATELET ESTIMATE NORMAL
[2017-06-28 20:00] VITALS: BP 121/79
[2017-06-28] MEDS ORDERED: MAGNESIUM 4 G PREMIX 100 ML IV NR (21:00)
[2017-06-29] VITALS: BP 118/73
[2017-06-29] MEDS: POLYVINYL ALCOHOL OPHTH DROPS 15ML BOTHEYE SCH ×5 (03:42→22:01)
[2017-06-29 04:00] VITALS: BP 107/66
[2017-06-29 08:00] VITALS: BP 118/79
[2017-06-29] MEDS: LEVETIRACETAM 500MG/5ML CUP PO SCH ×2 (09:26→22:01)
[2017-06-29] MEDS: MAGNESIUM GLUCONATE 500MG TABLET PO SCH ×3 (09:26→16:35)
[2017-06-29] MEDS: FOLIC ACID 1MG TABLET PO SCH (09:26)
[2017-06-29] MEDS: POTASSIUM CHLORIDE 10MEQ TABLET SR PO SCH (09:26)
[2017-06-29] MEDS: MULTIVITAMINS,THER W-MINERALS TABLET PO SCH (09:26)
[2017-06-29 12:00] VITALS: BP 112/76
[2017-06-29] MEDS: QUETIAPINE FUMARATE 25MG TABLET PO SCH ×2 (12:44→23:58)
[2017-06-29 16:00] VITALS: BP 103/67
[2017-06-29 20:00] VITALS: BP 122/68
[2017-06-30] MEDS: POLYVINYL ALCOHOL OPHTH DROPS 15ML BOTHEYE SCH ×4 (00:03→12:50)
[2017-06-30 08:00] VITALS: BP 117/73
[2017-06-30] MEDS: MAGNESIUM GLUCONATE 500MG TABLET PO SCH ×3 (08:47→16:36)
[2017-06-30] MEDS: POTASSIUM CHLORIDE 10MEQ TABLET SR PO SCH (08:47)
[2017-06-30] MEDS: MULTIVITAMINS,THER W-MINERALS TABLET PO SCH (08:47)
[2017-06-30] MEDS: LEVETIRACETAM 500MG/5ML CUP PO SCH ×2 (08:47→22:33)
[2017-06-30] MEDS: FOLIC ACID 1MG TABLET PO SCH (08:47)
[2017-06-30 12:00] VITALS: BP 116/70
[2017-06-30] MEDS: QUETIAPINE FUMARATE 25MG TABLET PO SCH (12:50)
[2017-06-30 16:00] VITALS: BP 119/76
[2017-06-30 19:10] LABS: CARBON DIOXIDE 23 mEq/L (21-32); CHLORIDE 103 mEq/L (98-107)
[2017-06-30 20:00] VITALS: BP 107/60
[2017-07-01] VITALS: BP 124/76
[2017-07-01] MEDS: QUETIAPINE FUMARATE 25MG TABLET PO SCH ×2 (00:49→12:40)
[2017-07-01 04:00] VITALS: BP 103/62
[2017-07-01 08:00] VITALS: BP 113/69
[2017-07-01] MEDS: POTASSIUM CHLORIDE 10MEQ TABLET SR PO SCH (09:22)
[2017-07-01] MEDS: LEVETIRACETAM 500MG/5ML CUP PO SCH ×2 (09:22→20:38)
[2017-07-01] MEDS: MULTIVITAMINS,THER W-MINERALS TABLET PO SCH (09:22)
[2017-07-01] MEDS: FOLIC ACID 1MG TABLET PO SCH (09:22)
[2017-07-01] MEDS: MAGNESIUM GLUCONATE 500MG TABLET PO SCH ×3 (09:22→17:33)
[2017-07-01 12:00] VITALS: BP 120/71
[2017-07-01 16:00] VITALS: BP 136/70
[2017-07-01 20:00] VITALS: BP 117/69
[2017-07-02] VITALS: BP 115/75
[2017-07-02] MEDS: QUETIAPINE FUMARATE 25MG TABLET PO SCH ×3 (03:27→23:58)
[2017-07-02 04:00] VITALS: BP 123/74
[2017-07-02 06:46] LABS: HEMATOCRIT. 26.9 % (42.0-52.0); HEMOGLOBIN. 9.2 g/dL (14.0-18.0); MEAN CORPUSCULAR HEMOGLOBIN 30.5 pg (28.0-32.0); MEAN CORPUSCULAR VOLUME 89.4 fL (80.0-94.0); MEAN PLATELET VOLUME 7.7 fl (7.4-10.4); PLATELET 168 x1000/uL (130-400); RED BLOOD CELL COUNT 3.01 mill/uL (4.7-6.1); RED CELL DISTRIBUTION WIDTH 23.9 % (11.6-14.6)
[2017-07-02 08:00] VITALS: BP 122/71
[2017-07-02 08:15] LABS: CARBON DIOXIDE 20 mEq/L (21-32); CHLORIDE 106 mEq/L (98-107); PHOSPHORUS 4.3 mg/dL (2.5-4.9)
[2017-07-02] MEDS: MULTIVITAMINS,THER W-MINERALS TABLET PO SCH (08:43)
[2017-07-02] MEDS: POTASSIUM CHLORIDE 10MEQ TABLET SR PO SCH (08:43)
[2017-07-02] MEDS: FOLIC ACID 1MG TABLET PO SCH (08:43)
[2017-07-02] MEDS: LEVETIRACETAM 500MG/5ML CUP PO SCH ×2 (08:43→20:41)
[2017-07-02] MEDS: MAGNESIUM GLUCONATE 500MG TABLET PO SCH (08:43)
[2017-07-02 12:00] VITALS: BP 123/73
[2017-07-02] MEDS ORDERED: IOHEXOL-300 100 ML BOTTLE ONE (14:06)
[2017-07-02] MEDS ORDERED: SODIUM CHLORIDE 0.9% 10ML VIAL ONE (14:06)
[2017-07-02 16:00] VITALS: BP 127/66
[2017-07-02] MEDS: MAGNESIUM OXIDE 400MG TABLET PO SCH (18:16)
[2017-07-02 18:21] LABS: PLATELET ESTIMATE NORMAL
[2017-07-02 20:00] VITALS: BP 122/72
[2017-07-03] VITALS: BP 110/65
[2017-07-03 00:41] LABS: AMMONIA 75 uMol/L (<32)
[2017-07-03 04:00] VITALS: BP 104/53
[2017-07-03 08:21] VITALS: BP 115/73
[2017-07-03] MEDS: LEVETIRACETAM 500MG/5ML CUP PO SCH ×2 (08:51→22:00)
[2017-07-03] MEDS: POTASSIUM CHLORIDE 10MEQ TABLET SR PO SCH (08:51)
[2017-07-03] MEDS: MAGNESIUM OXIDE 400MG TABLET PO SCH ×2 (08:51→17:16)
[2017-07-03] MEDS: FOLIC ACID 1MG TABLET PO SCH (08:51)
[2017-07-03] MEDS: MULTIVITAMINS,THER W-MINERALS TABLET PO SCH (08:51)
[2017-07-03 12:00] VITALS: BP 114/69
[2017-07-03] MEDS: QUETIAPINE FUMARATE 25MG TABLET PO SCH (12:45)
[2017-07-03 16:39] VITALS: BP 110/74
[2017-07-03 20:00] VITALS: BP 107/65
[2017-07-04] VITALS: BP 106/61
[2017-07-04] MEDS: QUETIAPINE FUMARATE 25MG TABLET PO SCH ×2 (00:44→12:30)
[2017-07-04 04:00] VITALS: BP 107/64
[2017-07-04 08:25] VITALS: BP 123/71
[2017-07-04] MEDS: MULTIVITAMINS,THER W-MINERALS TABLET PO SCH (09:00)
[2017-07-04] MEDS: POTASSIUM CHLORIDE 10MEQ TABLET SR PO SCH (09:24)
[2017-07-04] MEDS: LEVETIRACETAM 500MG/5ML CUP PO SCH ×2 (09:24→21:48)
[2017-07-04] MEDS: MAGNESIUM OXIDE 400MG TABLET PO SCH ×2 (09:24→16:31)
[2017-07-04] MEDS: FOLIC ACID 1MG TABLET PO SCH (09:24)
[2017-07-04 12:14] VITALS: BP 111/60
[2017-07-04 16:11] VITALS: BP 109/66
[2017-07-04 20:00] VITALS: BP 133/72
[2017-07-05] VITALS: BP 110/66
[2017-07-05] MEDS: QUETIAPINE FUMARATE 25MG TABLET PO SCH ×2 (00:35→11:57)
[2017-07-05 04:00] VITALS: BP 100/61
[2017-07-05 06:11] LABS: EOSINOPHILS % 10.3 % (0.0-5.0); HEMATOCRIT. 26.6 % (42.0-52.0); HEMOGLOBIN. 9.1 g/dL (14.0-18.0); LYMPHOCYTES % 26.4 % (20.0-50.0); MEAN CORPUSCULAR HEMOGLOBIN 30.5 pg (28.0-32.0); MEAN CORPUSCULAR VOLUME 89.8 fL (80.0-94.0); MEAN PLATELET VOLUME 7.3 fl (7.4-10.4); MONOCYTES % 14.1 % (2.0-8.0); NEUTROPHILS % 48.2 % (40.0-76.0); PLATELET 182 x1000/uL (130-400); RED BLOOD CELL COUNT 2.96 mill/uL (4.7-6.1); RED CELL DISTRIBUTION WIDTH 23.1 % (11.6-14.6)
[2017-07-05 06:48] LABS: CARBON DIOXIDE 21 mEq/L (21-32); CHLORIDE 105 mEq/L (98-107); PHOSPHORUS 4.7 mg/dL (2.5-4.9)
[2017-07-05 08:00] VITALS: BP 105/68
[2017-07-05] MEDS: MULTIVITAMINS,THER W-MINERALS TABLET PO SCH (09:33)
[2017-07-05] MEDS: POTASSIUM CHLORIDE 10MEQ TABLET SR PO SCH (09:33)
[2017-07-05] MEDS: LEVETIRACETAM 500MG/5ML CUP PO SCH ×2 (09:33→21:25)
[2017-07-05] MEDS: MAGNESIUM OXIDE 400MG TABLET PO SCH ×2 (09:33→16:17)
[2017-07-05] MEDS: FOLIC ACID 1MG TABLET PO SCH (09:34)
[2017-07-05 12:00] VITALS: BP 109/64
[2017-07-05 16:00] VITALS: BP 110/58
[2017-07-05 20:00] VITALS: BP 108/66
[2017-07-06] VITALS: BP 123/69
[2017-07-06 04:00] VITALS: BP 112/59
[2017-07-06 07:40] VITALS: BP 124/66
[2017-07-06] MEDS: LEVETIRACETAM 500MG/5ML CUP PO SCH ×2 (09:05→20:21)
[2017-07-06] MEDS: MULTIVITAMINS,THER W-MINERALS TABLET PO SCH (09:05)
[2017-07-06] MEDS: FOLIC ACID 1MG TABLET PO SCH (09:06)
[2017-07-06] MEDS: POTASSIUM CHLORIDE 10MEQ TABLET SR PO SCH (09:06)
[2017-07-06] MEDS: MAGNESIUM OXIDE 400MG TABLET PO SCH ×2 (09:06→16:19)
[2017-07-06] MEDS: QUETIAPINE FUMARATE 25MG TABLET PO SCH ×2 (11:24)
[2017-07-06 16:00] VITALS: BP 117/64
[2017-07-06 20:00] VITALS: BP 113/63
[2017-07-07] VITALS (7 sets, daily range): BP systolic 98–117; BP diastolic 46–64
[2017-07-07] MEDS: QUETIAPINE FUMARATE 25MG TABLET PO SCH ×3 (00:06→23:45)
[2017-07-07] MEDS: POTASSIUM CHLORIDE 10MEQ TABLET SR PO SCH (08:34)
[2017-07-07] MEDS: MAGNESIUM OXIDE 400MG TABLET PO SCH ×2 (08:34→16:27)
[2017-07-07] MEDS: LEVETIRACETAM 500MG/5ML CUP PO SCH ×2 (08:34→20:14)
[2017-07-07] MEDS: FOLIC ACID 1MG TABLET PO SCH (08:34)
[2017-07-07] MEDS: MULTIVITAMINS,THER W-MINERALS TABLET PO SCH (08:34)
[2017-07-08 04:49] VITALS: BP 107/67
[2017-07-08 08:00] VITALS: BP 128/77
[2017-07-08] MEDS: LEVETIRACETAM 500MG/5ML CUP PO SCH ×2 (09:31→21:36)
[2017-07-08] MEDS: MAGNESIUM OXIDE 400MG TABLET PO SCH ×2 (09:31→18:05)
[2017-07-08] MEDS: POTASSIUM CHLORIDE 10MEQ TABLET SR PO SCH (09:31)
[2017-07-08] MEDS: MULTIVITAMINS,THER W-MINERALS TABLET PO SCH (10:12)
[2017-07-08 12:00] VITALS: BP 115/67
[2017-07-08] MEDS: QUETIAPINE FUMARATE 25MG TABLET PO SCH ×2 (12:23→21:36)
[2017-07-08 16:00] VITALS: BP 126/76
[2017-07-08 20:00] VITALS: BP 122/77
[2017-07-09] VITALS: BP 100/56
[2017-07-09 04:00] VITALS: BP 101/59
[2017-07-09 08:00] VITALS: BP 111/68
[2017-07-09] MEDS: LEVETIRACETAM 500MG/5ML CUP PO SCH ×2 (08:29→21:32)
[2017-07-09] MEDS: QUETIAPINE FUMARATE 25MG TABLET PO SCH ×2 (08:29→21:32)
[2017-07-09] MEDS: MULTIVITAMINS,THER W-MINERALS TABLET PO SCH (08:29)
[2017-07-09] MEDS: POTASSIUM CHLORIDE 10MEQ TABLET SR PO SCH (08:29)
[2017-07-09] MEDS: MAGNESIUM OXIDE 400MG TABLET PO SCH ×2 (08:29→17:12)
[2017-07-09 12:00] VITALS: BP 130/59
[2017-07-09 16:00] VITALS: BP 120/65
[2017-07-09 20:00] VITALS: BP 111/64
[2017-07-10] VITALS: BP 109/60
[2017-07-10 04:32] VITALS: BP 117/74
[2017-07-10 06:33] LABS: HEMATOCRIT. 26.3 % (42.0-52.0); MEAN CORPUSCULAR HEMOGLOBIN 30.8 pg (28.0-32.0); MEAN CORPUSCULAR VOLUME 90.3 fL (80.0-94.0); MEAN PLATELET VOLUME 7.5 fl (7.4-10.4); PLATELET 151 x1000/uL (130-400); RED BLOOD CELL COUNT 2.92 mill/uL (4.7-6.1); RED CELL DISTRIBUTION WIDTH 22.5 % (11.6-14.6)
[2017-07-10 08:00] VITALS: BP 120/72
[2017-07-10] MEDS: QUETIAPINE FUMARATE 25MG TABLET PO SCH ×2 (08:07→20:52)
[2017-07-10] MEDS: LEVETIRACETAM 500MG/5ML CUP PO SCH ×2 (08:07→20:52)
[2017-07-10] MEDS: POTASSIUM CHLORIDE 10MEQ TABLET SR PO SCH (08:07)
[2017-07-10] MEDS: MAGNESIUM OXIDE 400MG TABLET PO SCH ×2 (08:07→16:49)
[2017-07-10] MEDS: MULTIVITAMINS,THER W-MINERALS TABLET PO SCH (08:07)
[2017-07-10 08:13] LABS: CARBON DIOXIDE 22 mEq/L (21-32); CHLORIDE 106 mEq/L (98-107); PHOSPHORUS 4.1 mg/dL (2.5-4.9)
[2017-07-10 12:00] VITALS: BP 101/68
[2017-07-10] MEDS ORDERED: MAGNESIUM 2 G PREMIX 50 ML IV NR (13:00)
[2017-07-10 16:00] VITALS: BP 119/69
[2017-07-10 18:20] LABS: PLATELET ESTIMATE NORMAL
[2017-07-10 20:00] VITALS: BP 115/63
[2017-07-11] VITALS: BP 103/58
[2017-07-11 04:00] VITALS: BP 110/62
[2017-07-11 08:00] VITALS: BP 112/62
[2017-07-11] MEDS: LEVETIRACETAM 500MG/5ML CUP PO SCH ×2 (09:06→21:14)
[2017-07-11] MEDS: QUETIAPINE FUMARATE 25MG TABLET PO SCH ×2 (09:07→21:14)
[2017-07-11] MEDS: MAGNESIUM OXIDE 400MG TABLET PO SCH ×3 (09:07→18:08)
[2017-07-11] MEDS: MULTIVITAMINS,THER W-MINERALS TABLET PO SCH (09:07)
[2017-07-11] MEDS: POTASSIUM CHLORIDE 10MEQ TABLET SR PO SCH (09:07)
[2017-07-11 11:42] VITALS: BP 107/68
[2017-07-11 15:35] VITALS: BP 121/64
[2017-07-11 20:00] VITALS: BP 125/67
[2017-07-12] VITALS: BP 119/65
[2017-07-12 08:00] VITALS: BP 125/65
[2017-07-12] MEDS: MULTIVITAMINS,THER W-MINERALS TABLET PO SCH (11:45)
[2017-07-12] MEDS: MAGNESIUM OXIDE 400MG TABLET PO SCH ×3 (11:46→17:48)
[2017-07-12] MEDS: POTASSIUM CHLORIDE 10MEQ TABLET SR PO SCH (11:46)
[2017-07-12] MEDS: LEVETIRACETAM 500MG/5ML CUP PO SCH ×2 (11:46→20:16)
[2017-07-12] MEDS: QUETIAPINE FUMARATE 25MG TABLET PO SCH ×2 (11:46→20:16)
[2017-07-12 12:00] VITALS: BP 134/61
[2017-07-12 16:00] VITALS: BP 127/74
[2017-07-12 20:00] VITALS: BP 119/68
[2017-07-13] VITALS: BP 115/72
[2017-07-13 04:00] VITALS: BP 128/72
[2017-07-13] MEDS: MULTIVITAMINS,THER W-MINERALS TABLET PO SCH (08:37)
[2017-07-13] MEDS: LEVETIRACETAM 500MG/5ML CUP PO SCH ×2 (08:37→21:10)
[2017-07-13] MEDS: MAGNESIUM OXIDE 400MG TABLET PO SCH ×3 (08:37→17:29)
[2017-07-13] MEDS: POTASSIUM CHLORIDE 10MEQ TABLET SR PO SCH (08:37)
[2017-07-13] MEDS: QUETIAPINE FUMARATE 25MG TABLET PO SCH ×2 (08:37→21:10)
[2017-07-13 12:00] VITALS: BP 126/74
[2017-07-13 16:00] VITALS: BP 122/73
[2017-07-13 20:00] VITALS: BP 125/68
[2017-07-14] VITALS: BP 130/80
[2017-07-14 04:01] VITALS: BP 120/60
[2017-07-14 08:00] VITALS: BP 123/71
[2017-07-14] MEDS: POTASSIUM CHLORIDE 10MEQ TABLET SR PO SCH (08:10)
[2017-07-14] MEDS: QUETIAPINE FUMARATE 25MG TABLET PO SCH ×2 (08:10→21:28)
[2017-07-14] MEDS: MAGNESIUM OXIDE 400MG TABLET PO SCH ×3 (08:10→19:03)
[2017-07-14 12:00] VITALS: BP 112/77
[2017-07-14] MEDS ORDERED: MAGNESIUM 2 G PREMIX 50 ML IV NR (15:00)
[2017-07-14 16:24] VITALS: BP 118/67
[2017-07-14 20:00] VITALS: BP 125/65
[2017-07-15 00:12] VITALS: BP 112/74
[2017-07-15 04:03] VITALS: BP 112/52
[2017-07-15 08:00] VITALS: BP 119/78
[2017-07-15] MEDS: QUETIAPINE FUMARATE 25MG TABLET PO SCH ×2 (08:51→20:50)
[2017-07-15] MEDS: POTASSIUM CHLORIDE 10MEQ TABLET SR PO SCH (08:52)
[2017-07-15] MEDS: MAGNESIUM OXIDE 400MG TABLET PO SCH ×3 (08:52→19:30)
[2017-07-15 12:00] VITALS: BP 121/66
[2017-07-15] MEDS: ACETAMINOPHEN 325MG TABLET PO PRN ×2 (12:58→19:28)
[2017-07-15 16:00] VITALS: BP 130/70
[2017-07-15 20:00] VITALS: BP 121/72
[2017-07-16] VITALS: BP 118/70
[2017-07-16 04:00] VITALS: BP 108/62
[2017-07-16 07:49] VITALS: BP 129/80
[2017-07-16] MEDS: MAGNESIUM OXIDE 400MG TABLET PO SCH ×3 (10:26→18:25)
[2017-07-16] MEDS: QUETIAPINE FUMARATE 25MG TABLET PO SCH ×2 (10:27→20:18)
[2017-07-16] MEDS: POTASSIUM CHLORIDE 10MEQ TABLET SR PO SCH (10:27)
[2017-07-16] MEDS: ACETAMINOPHEN 325MG TABLET PO PRN ×2 (11:34→18:25)
[2017-07-16 12:00] VITALS: BP 112/66
[2017-07-16 16:00] VITALS: BP 122/67
[2017-07-16 20:00] VITALS: BP 128/66
[2017-07-17] VITALS: BP 112/65
[2017-07-17 04:00] VITALS: BP 107/55
[2017-07-17 07:33] VITALS: BP 120/66
[2017-07-17] MEDS: MAGNESIUM OXIDE 400MG TABLET PO SCH ×3 (10:18→16:59)
[2017-07-17] MEDS: QUETIAPINE FUMARATE 25MG TABLET PO SCH ×2 (10:18→21:12)
[2017-07-17] MEDS: POTASSIUM CHLORIDE 10MEQ TABLET SR PO SCH (10:18)
[2017-07-17] MEDS: ACETAMINOPHEN 325MG TABLET PO PRN ×2 (10:21→16:59)
[2017-07-17 11:43] VITALS: BP 114/67
[2017-07-17 16:00] VITALS: BP 114/61
[2017-07-17 20:00] VITALS: BP 126/63
[2017-07-18 08:00] VITALS: BP 125/71
[2017-07-18] MEDS: MAGNESIUM OXIDE 400MG TABLET PO SCH ×3 (08:26→16:13)
[2017-07-18] MEDS: QUETIAPINE FUMARATE 25MG TABLET PO SCH ×2 (08:26→20:54)
[2017-07-18] MEDS: POTASSIUM CHLORIDE 10MEQ TABLET SR PO SCH (08:26)
[2017-07-18] MEDS: ACETAMINOPHEN 325MG TABLET PO PRN ×2 (08:26→17:59)
[2017-07-18 12:00] VITALS: BP 113/64
[2017-07-18 15:48] VITALS: BP 125/67
[2017-07-18 20:00] VITALS: BP 124/65
[2017-07-19 04:00] VITALS: BP 111/54
[2017-07-19 06:41] LABS: BASOPHILS % 1.2 % (0.0-2.0); EOSINOPHILS % 9.1 % (0.0-5.0); HEMATOCRIT. 27.5 % (42.0-52.0); HEMOGLOBIN. 9.4 g/dL (14.0-18.0); LYMPHOCYTES % 39.8 % (20.0-50.0); MEAN CORPUSCULAR HEMOGLOBIN 30.6 pg (28.0-32.0); MEAN CORPUSCULAR VOLUME 89.5 fL (80.0-94.0); MONOCYTES % 14.8 % (2.0-8.0); NEUTROPHILS % 35.1 % (40.0-76.0); RED BLOOD CELL COUNT 3.07 mill/uL (4.7-6.1); RED CELL DISTRIBUTION WIDTH 20.5 % (11.6-14.6)
[2017-07-19 08:00] VITALS: BP 111/74
[2017-07-19 08:02] LABS: CARBON DIOXIDE 23 mEq/L (21-32); CHLORIDE 108 mEq/L (98-107); PHOSPHORUS 4.4 mg/dL (2.5-4.9)
[2017-07-19] MEDS: QUETIAPINE FUMARATE 25MG TABLET PO SCH ×2 (08:57→20:34)
[2017-07-19] MEDS: POTASSIUM CHLORIDE 10MEQ TABLET SR PO SCH (08:57)
[2017-07-19] MEDS: MAGNESIUM OXIDE 400MG TABLET PO SCH ×3 (08:57→17:05)
[2017-07-19] MEDS: ACETAMINOPHEN 325MG TABLET PO PRN ×2 (08:57→18:49)
[2017-07-19 12:00] VITALS: BP 117/70
[2017-07-19 16:00] VITALS: BP 140/71
[2017-07-19] MEDS ORDERED: MAGNESIUM 2 G PREMIX 50 ML IV SCH (16:00)
[2017-07-19 20:00] VITALS: BP 134/71
[2017-07-20] VITALS: BP 128/60
[2017-07-20 04:00] VITALS: BP 132/71
[2017-07-20] MEDS: POTASSIUM CHLORIDE 10MEQ TABLET SR PO SCH (09:36)
[2017-07-20] MEDS: MAGNESIUM OXIDE 400MG TABLET PO SCH ×4 (09:38→21:27)
[2017-07-20] MEDS: ACETAMINOPHEN 325MG TABLET PO PRN ×2 (09:38→21:29)
[2017-07-20] MEDS: QUETIAPINE FUMARATE 25MG TABLET PO SCH ×2 (09:40→21:27)
[2017-07-20 13:21] LABS: MEAN PLATELET VOLUME 7.9 fl (7.4-10.4); PLATELET 74 x1000/uL (130-400)
[2017-07-20 13:23] LABS: PLATELET ESTIMATE SLIGHTLY DECREASED
[2017-07-20 20:00] VITALS: BP 110/62
[2017-07-21] MEDS: ACETAMINOPHEN 325MG TABLET PO PRN ×2 (04:33→12:49)
[2017-07-21 07:59] VITALS: BP 130/70
[2017-07-21] MEDS: QUETIAPINE FUMARATE 25MG TABLET PO SCH ×2 (08:12→21:02)
[2017-07-21] MEDS: POTASSIUM CHLORIDE 10MEQ TABLET SR PO SCH (08:12)
[2017-07-21] MEDS: MAGNESIUM OXIDE 400MG TABLET PO SCH ×4 (08:12→21:02)
[2017-07-21 12:00] VITALS: BP 113/73
[2017-07-21 16:21] VITALS: BP 122/71
[2017-07-21 20:57] VITALS: BP 119/62
[2017-07-21 23:45] VITALS: BP 113/57
[2017-07-22 03:50] VITALS: BP 107/63
[2017-07-22 08:00] VITALS: BP 122/77
[2017-07-22] MEDS: QUETIAPINE FUMARATE 25MG TABLET PO SCH (09:01)
[2017-07-22] MEDS: ACETAMINOPHEN 325MG TABLET PO PRN (09:02)
[2017-07-22] MEDS: POTASSIUM CHLORIDE 10MEQ TABLET SR PO SCH (09:02)
[2017-07-22] MEDS: MAGNESIUM OXIDE 400MG TABLET PO SCH ×2 (09:02→12:09)
[2017-07-22 12:00] VITALS: BP 129/83
[2017-07-22 12:30] VITALS: BP 129/83
== END 2017-07-22 13:40 | disposition home or self-care (01) | DRG 720 ==
LOC: ER 14:51 → 5EST 18:42 → EDBEDREQSVC 19:19 → ENRESERV 20:00 → CVICU 05-30 12:47 → 3WST 06-11 19:08 → 8WST 06-14 18:46
PROVIDERS: ADMIT Internal Medicine Nephrology; ATTEND Internal Medicine Nephrology
PROC: 5A1955Z Respiratory Ventilation, Greater than 96 Consecutive Hours (ICD-10-PCS; principal; 2017-05-29)
PROC: 0BH17EZ Insertion of Endotracheal Airway into Trachea, Via Natural or Artificial Opening (ICD-10-PCS; 2017-05-29)
PROC: 30233N1 Transfusion of Nonautologous Red Blood Cells into Peripheral Vein, Percutaneous Approach (ICD-10-PCS; 2017-05-30)
PROC: 30233R1 Transfusion of Nonautologous Platelets into Peripheral Vein, Percutaneous Approach (ICD-10-PCS; 2017-05-30)
PROC: 02HV33Z Insertion of Infusion Device into Superior Vena Cava, Percutaneous Approach (ICD-10-PCS; 2017-06-04)
PROC: B548ZZA Ultrasonography of Superior Vena Cava, Guidance (ICD-10-PCS; 2017-06-04)
DX: A40.8 Other streptococcal sepsis (principal); I21.4 Non-ST elevation (NSTEMI) myocardial infarction; J96.01 Acute respiratory failure with hypoxia; K72.00 Acute and subacute hepatic failure without coma; R65.21 Severe sepsis with septic shock; R18.8 Other ascites; J69.0 Pneumonitis due to inhalation of food and vomit; M62.82 Rhabdomyolysis; I81 Portal vein thrombosis; K74.60 Unspecified cirrhosis of liver; K56.7 Ileus, unspecified; K70.9 Alcoholic liver disease, unspecified; D69.59 Other secondary thrombocytopenia; E43 Unspecified severe protein-calorie malnutrition; J15.1 Pneumonia due to Pseudomonas; E83.42 Hypomagnesemia; D61.818 Other pancytopenia; E83.39 Other disorders of phosphorus metabolism; D63.8 Anemia in other chronic diseases classified elsewhere; E83.51 Hypocalcemia; R56.9 Unspecified convulsions; R16.1 Splenomegaly, not elsewhere classified; R45.1 Restlessness and agitation; E87.6 Hypokalemia; F10.229 Alcohol dependence with intoxication, unspecified; F10.288 Alcohol dependence with other alcohol-induced disorder; K02.9 Dental caries, unspecified; K05.6 Periodontal disease, unspecified; K92.2 Gastrointestinal hemorrhage, unspecified; Y90.8 Blood alcohol level of 240 mg/100 ml or more; Y92.009 Unspecified place in unspecified non-institutional (private) residence as the place of occurrence of the external cause; Y92.481 Parking lot as the place of occurrence of the external cause; Z59.0 Homelessness; Z78.1 Physical restraint status; Z68.23 Body mass index [BMI] 23.0-23.9, adult
CPT/HCPCS: 36415; 36569; 36600; 70450; 70470; 70486; 70551; 71010; 74000; 76700; 76937; 80048; 80053; 80202; 80305; 81001; 82140; 82270; 82375; 82550; 82553; 82805; 83605; 83690; 83735; 83880; 84100; 84478; 84484; 85025; 85610; 85651; 85730; 86705; 86709; 86803; 86850; 86900; 86920; 87040; 87070; 87077; 87086; 87186; 87340; 87493; 92610; 92950; 93005; 93306; 93970; 94002; 94003; 94640; 94660; 94664; 96361; 96365; 96367; 97112; 97116; 97163; 97164; 97166; 97530; 97535; 99291; A4216; A6261; C1725; C1893; C9113; G0482; J0330; J0610; J0696; J1940; J1953; J1956; J2060; J2270; J2370; J2405; J2543; J2704; J2765; J3370; J3411; J3475; J3480; J3490; J7030; J7040; J7042; J7050; J7060; J7070; J7608; J7620; P9016; P9034; Q9967; A4315